=== PATIENT | male | born 1945 | race Caucasian/White ===

== ENCOUNTER 2018-09-02 01:16 | Outpatient (CLI) | payer MEDICARE, MEDICAID, SELFPAY ==
--- NOTE | 2018-09-02 10:36 | DI.MRI_ITS ---
SYMPTOMS/DIAGNOSIS: COMPLEX TEAR OF RT MEDIAL MENISCUS, SUBSEQUENT ENCOUNTER, S83.784K RIGHT KNEE MRI: The study was conducted according to the usual protocol. Axial T 2 fat sat, coronal T 2 fat sat, coronal proton density, sagittal T 2 fat sat and sagittal proton density and sagittal proton density thin ACL pulse sequences were performed. There is some increased signal involving the lateral portion of the medial tibial plateau likely on a degenerative basis. The bony signal is essentially unremarkable. The extensor mechanism of the knee is preserved. The lateral meniscus is normal. There is some irregularity of the mid and anterior portion of the medial meniscus.The findings could be on the basis of prior surgery. No prior MRI was available at the time of this interpretation. However the possibility of an acute or subacute medial meniscal tear could not be excluded. The cruciate ligaments are intact. There is a small joint effusion. A small region of diminished signal is noted involving the medial portion of the medial femoral condyle and there is likely a small cartilaginous defect at this level. The findings consistent with a small osteochondral defect. The patella is intact. Lateral patellofemoral joint degenerative changes are identified and there is an osteochondral defect involving the medial portion of the lateral articular surface of the patella. The medial and lateral patellar retinaculum and medial and lateral collateral ligaments of the knee appear intact. SUMMARY: Irregularity and deformity of the medial meniscus may represent the residua of an old injury or subacute injury. Also the possibility of post surgical changes is raised. The lateral meniscus is normal. There is at least one small osteochondral defect involving the medial femoral condyle and there are degenerative changes involving the patella as described above.
== END 2018-09-02 01:36 ==
PROVIDERS: PCP Family Medicine; Visit Provider Orthopaedic Surgery
DX: S83.231D Complex tear of medial meniscus, current injury, right knee, subsequent encounter (principal); M17.11 Unilateral primary osteoarthritis, right knee; M25.461 Effusion, right knee
CPT/HCPCS: 73721

== ENCOUNTER 2018-09-12 02:04 | Outpatient (CLI) | payer MEDICARE, MEDICAID, SELFPAY ==
[2018-09-12 08:27] LABS: HCT 47.9 % (40.0-50.0); HGB 15.7 g/dL (13.5-17.5); Mean Corp. HGB Concentration 32.8 g/dL (32.0-36.0); Mean Corpuscular Hemoglobin 30.1 pg (27.0-33.0); Mean Corpuscular Volume 91.8 fL (80-95); Mean Platelet Volume 10.6 fL (8.0-11.0); Platelet Count 238 x1000/uL (130-400); RBC 5.22 m/cumm (4.50-6.00); RBC Distribution Width 13.6 % (11.8-14.1); White Blood Cell Count 6.49 k/cumm (4.4-10.8)
[2018-09-12 09:14] LABS: ALT 27 U/L (12-78); AST 20 U/L (15-37); Albumin 3.9 g/dL (3.4-5.0); Alkaline Phosphatase 95 U/L (46-116); Anion Gap 9.7 mmol/L (3-11); BUN 17 mg/dL (7-18); Bilirubin, Total 0.6 mg/dL (0.2-1.0); CO2 28.3 mmol/L (21.0-32.0); CREATININE 1.12 mg/dL (0.70-1.30); Chloride 102 mmol/L (98-107); Cholesterol 150 mg/dL (50-200); Glucose 97 mg/dL (70-100); HDL Cholesterol 43 mg/dL (40-60); LDL CHOLESTEROL 97 mg/dL (<100); Potassium 4.1 mmol/L (3.5-5.1); Sodium 140 mmol/L (136-145); Total Protein 6.4 g/dL (6.4-8.2); Triglyceride 61 mg/dL (30-150)
[2018-09-12 09:38] LABS: Calcium 9.1 mg/dL (8.5-10.1)
== END 2018-09-12 02:24 ==
PROVIDERS: PCP Family Medicine; Visit Provider Family Medicine
DX: I10 Essential (primary) hypertension (principal)
CPT/HCPCS: 36415; 80053; 80061; 83721; 85027

== ENCOUNTER 2019-07-16 07:46 | Outpatient (CLI) | payer MEDICARE, MEDICAID, SELFPAY ==
[2019-07-16 09:12] LABS: Calculated LDL 49 mg/dL; Cholesterol 108 mg/dL (50-200); HDL Cholesterol 42 mg/dL (40-60); LDL CHOLESTEROL 57 mg/dL (<100); Triglyceride 85 mg/dL (30-150)
== END 2019-07-16 08:06 ==
PROVIDERS: PCP Family Medicine; Visit Provider Internal Medicine Cardiovascular Disease
DX: E78.6 Lipoprotein deficiency (principal)
CPT/HCPCS: 36415; 80061; 83721

== ENCOUNTER 2019-09-01 02:58 | Outpatient (CLI) | payer MEDICARE, MEDICAID, SELFPAY ==
[2019-09-01 09:40] LABS: HCT 45.1 % (40.0-50.0); HGB 14.6 g/dL (13.5-17.5); Mean Corp. HGB Concentration 32.4 g/dL (32.0-36.0); Mean Corpuscular Hemoglobin 29.9 pg (27.0-33.0); Mean Corpuscular Volume 92.4 fL (80-95); Mean Platelet Volume 10.2 fL (8.0-11.0); Platelet Count 252 x1000/uL (130-400); RBC 4.88 m/cumm (4.50-6.00); RBC Distribution Width 13.3 % (11.8-14.1); White Blood Cell Count 7.37 k/cumm (4.4-10.8)
[2019-09-01 11:13] LABS: ALT 20 U/L (16-63); AST 13 U/L (15-37); Albumin 3.6 g/dL (3.4-5.0); Alkaline Phosphatase 114 U/L (46-116); Anion Gap 6.6 mmol/L (3-11); BUN 15 mg/dL (7-18); Bilirubin, Total 0.5 mg/dL (0.2-1.0); CO2 28.4 mmol/L (21.0-32.0); CREATININE 1.07 mg/dL (0.70-1.30); Calcium 8.8 mg/dL (8.5-10.1); Chloride 107 mmol/L (98-107); Glucose 99 mg/dL (74-106); Sodium 142 mmol/L (136-145); Total Protein 6.4 g/dL (6.4-8.2)
== END 2019-09-01 03:18 ==
PROVIDERS: PCP Family Medicine; Visit Provider Family Medicine
DX: I10 Essential (primary) hypertension (principal); J44.9 Chronic obstructive pulmonary disease, unspecified
CPT/HCPCS: 36415; 80053; 85027

== ENCOUNTER 2019-10-08 02:17 | Outpatient (CLI) | payer MEDICARE, MEDICAID, SELFPAY ==
[2019-10-08 09:07] LABS: HCT 45.5 % (40.0-50.0); HGB 14.5 g/dL (13.5-17.5); Mean Corp. HGB Concentration 31.9 g/dL (32.0-36.0); Mean Corpuscular Hemoglobin 29.4 pg (27.0-33.0); Mean Corpuscular Volume 92.1 fL (80-95); Mean Platelet Volume 10.3 fL (8.0-11.0); Platelet Count 268 x1000/uL (130-400); RBC 4.94 m/cumm (4.50-6.00); RBC Distribution Width 13.3 % (11.8-14.1); White Blood Cell Count 6.55 k/cumm (4.4-10.8)
[2019-10-08 10:05] LABS: ALT 24 U/L (16-63); AST 15 U/L (15-37); Albumin 3.6 g/dL (3.4-5.0); Alkaline Phosphatase 110 U/L (46-116); Anion Gap 7.4 mmol/L (3-11); BUN 12 mg/dL (7-18); Bilirubin, Total 0.5 mg/dL (0.2-1.0); CO2 31.6 mmol/L (21.0-32.0); CREATININE 1.13 mg/dL (0.70-1.30); Calcium 8.6 mg/dL (8.5-10.1); Chloride 103 mmol/L (98-107); Glucose 114 mg/dL (74-106); Sodium 142 mmol/L (136-145); Total Protein 6.2 g/dL (6.4-8.2)
== END 2019-10-08 02:37 ==
PROVIDERS: PCP Family Medicine; Visit Provider Family Medicine
DX: J44.9 Chronic obstructive pulmonary disease, unspecified (principal); I10 Essential (primary) hypertension
CPT/HCPCS: 36415; 80053; 85027

== ENCOUNTER 2019-10-27 02:09 | Outpatient (CLI) | payer MEDICARE, MEDICAID, SELFPAY ==
[2019-10-27 08:50] LABS: ALT 20 U/L (16-63); AST 16 U/L (15-37); Albumin 3.5 g/dL (3.4-5.0); Alkaline Phosphatase 108 U/L (46-116); Anion Gap 6.7 mmol/L (3-11); BUN 21 mg/dL (7-18); Bilirubin, Total 0.5 mg/dL (0.2-1.0); CO2 31.3 mmol/L (21.0-32.0); CREATININE 1.24 mg/dL (0.70-1.30); Chloride 105 mmol/L (98-107); Glucose 102 mg/dL (74-106); Sodium 143 mmol/L (136-145); Total Protein 6.7 g/dL (6.4-8.2)
[2019-10-27 08:51] LABS: Creatine Kinase 56 U/L (39-308); Magnesium 2.1 mg/dL (1.8-2.4)
== END 2019-10-27 02:29 ==
PROVIDERS: PCP Family Medicine; Visit Provider Internal Medicine Cardiovascular Disease
DX: E78.6 Lipoprotein deficiency (principal); R06.09 Other forms of dyspnea; I10 Essential (primary) hypertension; I48.0 Paroxysmal atrial fibrillation
CPT/HCPCS: 36415; 80053; 82550; 83735

== ENCOUNTER 2019-11-06 00:57 | Outpatient (CLI) | payer MEDICARE, MEDICAID, SELFPAY ==
[2019-11-06 09:50] LABS: ALT 22 U/L (16-63); AST 12 U/L (15-37); Albumin 3.6 g/dL (3.4-5.0); Alkaline Phosphatase 127 U/L (46-116); BUN 14 mg/dL (7-18); Bilirubin, Total 0.5 mg/dL (0.2-1.0); CREATININE 1.17 mg/dL (0.70-1.30); Calcium 8.5 mg/dL (8.5-10.1); Chloride 102 mmol/L (98-107); Glucose 114 mg/dL (74-106); Potassium 4.2 mmol/L (3.5-5.1); Sodium 141 mmol/L (136-145); Total Protein 6.5 g/dL (6.4-8.2)
== END 2019-11-06 01:17 ==
PROVIDERS: PCP Family Medicine; Visit Provider Family Medicine
DX: J44.9 Chronic obstructive pulmonary disease, unspecified (principal); I48.0 Paroxysmal atrial fibrillation; I10 Essential (primary) hypertension; M54.5 Low back pain; I48.92 Unspecified atrial flutter; N40.1 Benign prostatic hyperplasia with lower urinary tract symptoms; E78.5 Hyperlipidemia, unspecified
CPT/HCPCS: 36415; 80053

== ENCOUNTER 2019-11-20 00:13 | Outpatient (CLI) | payer MEDICARE, MEDICAID, SELFPAY ==
[2019-11-20 09:51] LABS: ALT 27 U/L (16-63); AST 16 U/L (15-37); Albumin 3.6 g/dL (3.4-5.0); Alkaline Phosphatase 116 U/L (46-116); Anion Gap 8.2 mmol/L (3-11); BUN 20 mg/dL (7-18); Bilirubin, Total 0.3 mg/dL (0.2-1.0); CO2 28.8 mmol/L (21.0-32.0); CREATININE 1.28 mg/dL (0.70-1.30); Calcium 8.4 mg/dL (8.5-10.1); Chloride 106 mmol/L (98-107); Estimated GFR 55.24 (mL/min/1.73m2); Glucose 120 mg/dL (74-106); Potassium 4.3 mmol/L (3.5-5.1); Sodium 143 mmol/L (136-145); Total Protein 6.3 g/dL (6.4-8.2)
== END 2019-11-20 00:33 ==
PROVIDERS: PCP Family Medicine; Visit Provider Internal Medicine Cardiovascular Disease
DX: I48.0 Paroxysmal atrial fibrillation (principal); I10 Essential (primary) hypertension; J44.9 Chronic obstructive pulmonary disease, unspecified; I48.92 Unspecified atrial flutter; N40.1 Benign prostatic hyperplasia with lower urinary tract symptoms; E78.5 Hyperlipidemia, unspecified; M25.561 Pain in right knee; M54.5 Low back pain
CPT/HCPCS: 36415; 80053

== ENCOUNTER → 2020-04-29 09:52 | Outpatient (BNVA) | payer MEDICARE, MEDICAID, SELFPAY | PROVIDERS: PCP Family Medicine; Referring Provider Family Medicine; Visit Provider Surgery | DX: R19.5 Other fecal abnormalities (principal); Z12.11 Encounter for screening for malignant neoplasm of colon; I48.20 Chronic atrial fibrillation, unspecified; I50.32 Chronic diastolic (congestive) heart failure; M19.90 Unspecified osteoarthritis, unspecified site; G47.33 Obstructive sleep apnea (adult) (pediatric); J44.9 Chronic obstructive pulmonary disease, unspecified; K62.5 Hemorrhage of anus and rectum; F10.11 Alcohol abuse, in remission; G62.9 Polyneuropathy, unspecified | CPT/HCPCS: 99203; 99214 ==

== ENCOUNTER 2020-05-12 09:00 | Day surgery (SDC) | payer MEDICARE, MEDICAID, SELFPAY ==
[2020-05-12 09:16] VITALS: BP 133/83; PULSE 84; RESP 18; TEMP 36.2; O2SAT 99
[2020-05-12] MEDS: Lactated Ringers 1,000 ML 80 ML IV (10:01)
--- NOTE | 2020-05-12 11:01 | BOWEL_PTH ---
PATIENT: Liang Kumar LOC: [facility] U#:[id number] AGE/SX: 74/M ROOM: RE05/12/[address]: Edie Win : 1945 BED: DIS: 05/12/2020 SPEC #: [id number] RECD: 05/12/20 12:49 STATUS: ROBERT REQ #: [id number] FERMIN: 05/12/20 11:[address]: Edie Win DEPT: Surgical Specimen RECD BY: Eda Parkinson ENTERED: 05/12/20 12:50 SP TYPE: Bowel OTHR DR: Crescencio Bhardwaj Tissues: 1 - BIOPSY BOWEL Procedures: GROSS AND MICRO LEVEL 4 IMMUNOPEROXIDASE STAIN Comments:
--- NOTE | 2020-05-12 11:37 | COLE_ITS ---
Date of service: 05/12/20 Time of Service: 11:00 Colonoscopy Report Date of procedure: 05/12/20 Pre-op diagnosis general: FIT+ Post-op diagnosis procedure note: other (Severe diverticular disease, adenomatous polyp at 20 cm 2 cm. And a 5 mm adenomatous polyp adjacent to this. This area is tattooed as well.) Procedure: CE and polypectomy w/ hot snare tatoo jena clip Surgeon: Edie Win Anesthesia proc note operative: MAC Estimated blood loss (mL): 3 Pathology: other Complications: None Indications: +FIT Prep: Miralax/Dulcolax Retraction Time: 20 Procedure Description: After informed consent was obtained the patient was taken to the procedure room and placed in a left decubitous position. Monitors were applied and a time out was done. The patients name, date of , procedure, allergies to medications and metal in their body was reviewed. The patient was then sedated. Once sedated and comfortable a rectal exam was done. External exam: External hemorrhoids and tags. Internal exam revealed a normal sphincter tone and no palpable masses. The prostate-enlarged The scope was then introduced and retrofelexed. Grade 2 internal hemorrhoids were identified. The scope was then advanced to the cecum w/o difficulty. The TI and appendiceal orifice were identified. The prep was good. The scope was then slowly retracted over 20 minutes back into the rectum. Polyps were removed x2 @ 20cm was a 2 cm polyp that was removed. With a hot snare, into pieces because of its size. This area was tattooed. A clip was placed on it at the conclusion of the procedure. There is no bleeding. There is a smaller polyp adenomatous polyp adjacent to this this is removed one by a hot adenomatous forcep. All specimens retrieved and no bleeding is noted. He also has severe diverticular disease. Most of this is confined to the sigmoid colon, but it does extend all the way over to the left colon. There is no signs of active bleeding or infections. The scope was removed and the patient was woken up and taken back to Same day surgery in stable condition. The patient tolerated the procedure well and there were no immediate complic ations. Follow up: The patient should follow up in 6-12m,path pd. Unless they develop changes in bowel habits or other new gastrointestinal complaints.
--- NOTE | 2020-05-12 11:40 | PDOC.DSDIS_ITS ---
Discharge Plan Disposition Patient Disposition: HOME Condition: Good Discharge Details Reason For Visit: colon scope and polyp removal Attending Provider: Edie Win Primary Care Provider: Crescencio Bhardwaj Home Meds and New Rx's Prescriptions: Continued bisacodyl [Dulcolax (bisacodyl)] 5 mg tablet,delayed release (DR/EC) 5 mg PO ONCE Qty: 4 RF: 0 Anoro Ellipta 62.5-25 mcg/actuation blister with device 1 inh IH DAILY RF: 0 metoprolol succinate 25 mg capsule,sprinkle,ER 24hr 25 mg PO DAILY RF: 0 potassium chloride 10 mEq capsule, extended release 10 meq PO DAILY RF: 0 spironolactone 25 mg tablet 25 mg PO DAILY RF: 0 tamsulosin 0.4 mg capsule 0.8 mg PO DAILY RF: 0 torsemide 20 mg tablet 40 mg PO DAILY RF: 0 albuterol sulfate [Ventolin HFA] 90 mcg/actuation HFA aerosol inhaler 2 puff IH QID RF: 0 Discontinued Eliquis 5 mg tablet 5 mg PO BID RF: 0 meloxicam 15 mg tablet 15 mg PO DAILY RF: 0 polyethylene glycol 3350 17 gram/dose powder 17 g PO ONCE Qty: 238 RF: 0 Discharge Instructions Additional Instructions: Findings: -x2 polyp at 20cm. One was large. We should repeat the C. Scope in 6-12moths. You will receive a letter in 2-3wks with the results of the pathology and when they want to repeat the colon scope. Do not resume Elliquis until Saturday No ASA/NSAID's/Meloxicam for 2 weeks. We will have some slight bleeding with the first bowel movement. If there is any bleeding that persists for more than 2 bowel movements, or if passing clots larger than a fist, come into the emergency room. -Also noted is severe diverticular disease. Follow a high fiber diet, or consider adding a fiber supplement to your daily medication routine. Make sure you are moving your bowels on a regular basis and not straining to go to the bathroom. Please call if you develop: fevers >101.5 Nausea or Vomiting Abdominal pain that is not transient DAY SURGERY UNIT POST COLONOSCOPY INSTRUCTIONS 1. Because there will be medication in your system for the next 24 hours, you may feel a little sleepy. Your coordination will be affected. Therefore: a. Do not drive or operate dangerous equipment for 24 hours. b. Do not drink alcohol beverages for 24 hours (not even beer). c. Plan to go home and rest for the day. 2. Generally there are no restrictions on your activity after a day or so has gone by, but you may feel a bit fatigued for a few days. 3 After you arrive home you may have a light meal and return to a normal diet as you can tolerate it without feeling sick to your stomach. 4. After surgery, you may feel pain or discomfort. This should be only transient, but if it persists please contact your doctor. 5. If there are any questions regarding the findings of your procedure, please feel free to contact your doctor. 6. If you are unable to contact your doctor with a problem, contact the hospital at [phone]. 7. Continue all your regular medications unless directed otherwise. I understand the above instructions and have no questions. Signature of Patient or Responsible Adult Escort Date/Time Name of Responsible Adult Escort Signature of Nurse Date/Time DIVERTICULAR DISEASE OVERVIEW ? A diverticulum is a pouch-like structure that can form through points of weakness in the muscular wall of the colon (ie, at points where blood vessels pass through the wall). Diverticulosis affects men and women equally. The risk of diverticular disease increases with age. It occurs throughout the world but is seen more commonly in developed countries. WHAT IS DIVERTICULAR DISEASE? Diverticulosis ? Diverticulosis merely describes the presence of diverticula. Diverticulosis is often found during a test done for other reasons, such as flexible sigmoidoscopy, colonoscopy, or barium enema. Most people with diverticulosis have no symptoms and will remain symptom free for the rest of their lives. A person with diverticulosis may have diverticulitis, or diverticular bleeding. Diverticulitis ? Inflammation of a diverticulum (diverticulitis) occurs when there is thinning and breakdown of the diverticular wall. This may be caused by increased pressure within the colon or by hardened particles of stool, which can become lodged within the diverticulum. The symptoms of diverticulitis depend upon the degree of inflammation present. The most common symptom is pain in the left lower abdomen. Other symptoms can include nausea and vomiting, constipation, diarrhea, and urinary symptoms such as pain or burning when urinating or the frequent need to urinate. Diverticulitis is divided into simple and complicated forms. ?Simple diverticulitis, which accounts for 75 percent of cases, is not associated with complications and typically responds to medical treatment without surgery. ?Complicated diverticulitis occurs in 25 percent of cases and usually requires surgery. Complications associated with diverticulitis can include the following: ?Abscess ? a localized collection of pus ?Fistula ? an abnormal tract between two areas that are not normally connected (eg, bowel and bladder) ?Obstruction ? a blockage of the colon ?Peritonitis ? infection involving the space around the abdominal organ ?Sepsis ? overwhelming body-wide infection that can lead to failure of multiple organs Diverticular bleeding ? Diverticular bleeding occurs when a small artery located within a diverticulum is eroded and bleeds into the colon. Diverticular bleeding usually causes painless bleeding from the rectum. In approximately 50 percent of cases, the person will see maroon or bright red blood with bowel movements. Is bleeding with a bowel movement normal? ? It is not normal to see blood in a bowel movement; this can be a sign of several conditions, most of which are not serious (eg, hemorrhoids) but some of which are serious and require immediate treatment. Anyone who sees blood after a bowel movement should consult with their healthcare provider to determine if further testing or evaluation is needed. DIVERTICULOSIS AND DIVERTICULITIS DIAGNOSIS ? Diverticulosis is often found during tests performed for other reasons. ?Barium enema ? This is an x-ray study that uses barium in an enema to view the outline of the lower intestinal tract. This is an older test and has been largely replaced by computed tomography (CT) scan. ?Flexible sigmoidoscopy ? This is an examination of the inside of the sigmoid colon with a thin, flexible tube that contains a camera. ?Colonoscopy ? This is an examination of the inside of the entire colon. ?CT scan ? A CT scan is often used to diagnose diverticulitis and its complications. If diverticulitis (not just diverticulosis) is suspected, the above three tests should not be used because of the risk of perforation. TREATMENT Diverticulosis ? People with diverticulosis who do not have symptoms do not require treatment. However, most clinicians recommend increasing fiber in the diet, which can help to bulk the stools and possibly prevent the development of new diverticula, diverticulitis, or diverticular bleeding. Fiber is not proven to prevent these conditions in all patients but may help to control recurrent episodes in some. Increase fiber ? Fruits and vegetables are a good source of fiber. Fiber content of packaged foods can be calculated by reading the nutrition label. Seeds and nuts ? Patients with diverticular disease have historically been advised to avoid whole pieces of fiber (such as seeds, corn, and nuts) because of concern that these foods could cause an episode of diverticulitis. However, this belief is completely unproven. We do not suggest that patients with diverticulosis avoid seeds, corn, or nuts. Diverticulitis ? Treatment of diverticulitis depends upon how severe your s ymptoms are. Home treatment ? If you have mild symptoms of diverticulitis (mild abdominal pain, usually left lower abdomen), you can be treated at home with a clear liquid diet and oral antibiotics. However, if you develop one or more of the following signs or symptoms, you should seek immediate medical attention: ?Temperature >100.1?F (38?C) ?Worsening or severe abdominal pain ?An inability to tolerate fluids Hospital treatment ? If you have moderate to severe symptoms, you may be hospitalized for treatment. During this time, you are not allowed to eat or drink; antibiotics and fluids are given into a vein. If you develop an abscess of the colon, you may require drainage of the abscess (usually performed by placing a drainage tube across the abdominal wall) or by surgically opening the affected area. Surgery ? If you develop a generalized infection in the abdomen (peritonitis), you will usually require an emergency operation. A two-part operation may be necessary in some cases. ?The first operation involves removal of the diseased colon and creation of a colostomy. A colostomy is an opening between the colon and the skin, where a bag is attached to collect waste from the intestine. The lower end of the colon is temporarily sewed closed to allow it to heal. ?Approximately three to six months later, a second operation is performed to reconnect the two parts of the colon and close the opening in the skin. You are then able to empty your bowels through the rectum. Sometimes patients require up to a year to recover from the first operation, depending on how sick they were. In non-emergency situations, the diseased area of the colon can be removed and the two ends of the colon can be reconnected in one operation, without the need for a colostomy. Surgery versus medical therapy ? An operation to remove the diseased area of the colon may be necessary if you do not improve with medical therapy. After an episode of uncomplicated diverticulitis, elective surgery is generally not required as the risk of another attack or requiring emergency surgery is low. However, patients with persistent symptoms attributable to diverticulitis, a history of complicated diverticulitis, or a compromised immune system should be evaluated for possible surgery to prevent another attack. In such patients, another attack has been associated with a higher risk of complications or . Of course, the decision will also depend in part upon your other medical conditions and ability to undergo surgery. In many cases, an elective operation can be performed laparoscopically, using small incisions, rather than the typical vertical (up and down) abdominal incision. Laparoscopic surgery usually allows you to recover more quickly and shortens the hospital stay. After diverticulitis resolves ? After an episode of diverticulitis resolves, if you have not had a recent colonoscopy, the entire length of the colon should be evaluated to determine the extent of disease and to rule out the presence of abnormal lesions such as polyps or cancer. Recommended tests include colonoscopy, barium enema and sigmoidoscopy, or CT colonography. Diverticular bleeding ? Most cases of diverticular bleeding resolve on their own. However, some people will need further testing or treatment to stop bleeding, which may include a colonoscopy, angiography (a treatment that blocks off the bleeding artery), bleeding scan, or surgery. DIVERTICULAR DISEASE PROGNOSIS Diverticulosis ? Over time, diverticulosis may cause no problems or it may cause episodes of bleeding and/or diverticulitis. Approximately 15 to 25 percent of people with diverticulosis will develop diverticulitis, while 5 to 15 percent will develop diverticular bleeding. Diverticulitis ? Approximately 85 percent of people with uncomplicated d iverticulitis will respond to medical treatment, while approximately 15 percent of patients will need an operation. After successful treatment for a first attack of diverticulitis, one-third of patients will remain asymptomatic, one- third will have episodic cramps without diverticulitis, and one-third will go on to have a second attack of diverticulitis. The prognosis tends to remain similar following a second attack of diverticulitis. Only 10 percent of people remain symptom-free after a second attack. Subsequent attacks tend to be of similar severity, not increasing in severity as previously believed. High Fiber Diet What is Dietary Fiber? All fiber comes from plants, bushes, jeremias or trees. Of course, the ones that we eat provide us with fruits, vegetables and grains. There are many different types of fiber but the three that are most important to the health of the body are: Insoluble Fiber This fiber does not dissolve in water, nor is it fermented by the bacteria residing in the colon. Rather, it retains water and in so doing, helps to promote a larger, bulkier and more regular bowel activity. This, in turn, may be important in preventing disorder such as diverticulosis and hemorrhoids, and in sweeping out certain toxins and cancer causing carcinogens. Sources of insoluble fiber are: ? whole grain wheat and other whole grains ? corn bran, including popcorn, unflavored and unsweetened ? nuts and seeds ? potatoes and the skins from most fruits from trees such as apples, bananas and avocados ? many green vegetables such as green beans, zucchini, celery and cauliflower ? some fruit plants such as tomatoes and kiwi Soluble Fiber These fibers are fermented or used by the colon bacteria as a food source or nourishment. When these good bacteria grow and thrive, many health benefits occur in both the colon and the body. Soluble fiber is present in some degree in most edible plant foods, but the ones with the most soluble fiber include: ? legumes such as peas and most beans, including soybeans ? oats, rye and barley ? many fruits such as berries, plums, apples bananas and pears ? certain vegetables such as broccoli and carrots ? most root vegetables ? psyllium husk supplement products Prebiotic Soluble Fiber These are relatively newly discovered soluble plant fibers. The technical name for this fiber is inulin or fructan. When these soluble fibers are fermented by the good colon bacteria, some further significant health benefits have been shown to occur by research in many medical centers. These soluble prebiotic fibers occur in significant amounts in: ? asparagus ? yams ? onions ? garlic ? bananas ? leeks ? agave ? chicory and other root vegetables such as [place] artichokes ? wheat, rye and barley (smaller amounts) Benefits of a High Fiber Diet The health benefits of a high fiber diet, consumed on a regular basis and reaching recommended amounts (below), are now fairly well-defined. There are some additional benefits in the early research stage with the prebiotic soluble fibers. What is now known regarding a high fiber diet include: Bowel Regularity A high fiber diet promotes regularity with a softer, bulkier and regular stool pattern. This decreases the chance of hemorrhoids, diverticulosis and perhaps colon cancer. Cholesterol and Reduced Triglycerides The soluble fibers are the ones that will reduce cholesterol levels when used on a regular basis. Psyllium husk and prebiotic soluble fiber will also reduce cholesterol. They may also reduce the incidence of coronary heart disease. Oats, flax seeds and legumes or beans are the recommended fibers. Colon Polyps and Cancer It is still not certain if a high fiber diet helps prevent colon cancer. Considerable research suggests that this may occur. Certainly it makes sense to increase regularity and so speed the movement of cancer causing carcinogens through the bowel. In addition, reducing a heavy meat diet reduces the bile flow from the liver in a favorable way. This, too, reduces the amount of carcinogens that reach and are manufactured in the colon. Finally, a high fiber diet, including prebiotic soluble fiber, increases the integrity and health of the wall of the colon. The risk of cancer may be reduced. Colon Wall Integrity A high fiber diet changes the bacterial makeup of the colon toward a more favorable balance. For instance, it is known that those people with obesity, diabetes type 2 and inflammatory bowel disease have a predominance of bad bacteria in the colon. This, in turn, may render the bowel wall weak and allow bacteria and, indeed, even toxins to seep through. A high fiber diet with a modest reduction in animal and meat products may return the bacterial makeup to a more positive balance. This, in particular, has been seen when the soluble fib er prebiotics are added to the diet. Blood Sugar Soluble fiber such as in legumes (beans), oats and in prebiotic fibers slows the absorption of blood sugar and so helps regulate the sugar in the blood. Insoluble fiber on a regular basis is associated with reduced risk of type 2 diabetes. Weight Loss High fiber diets are more filling and give a sense of fullness sooner than an animal and meat based diet does. In addition, the soluble prebiotic fibers have been shown to turn off the hunger hormones produced in the wall of the gut and to increase the hormones that give a sense of fullness. Those hormones are made in the wall of the gut. New medical research has shown that the bacterial makeup in the colon in overweight people is abnormal to the extent that they manufacture and absorb almost twice the number of calories through the colon wall as do normals. Prebiotic fibers (below) will help change this hormonal balancein a favorable way. Bacteria and the Function of the Colon The colon finishes the digestive process. Hopefully, the waste products move through in a nice regular manner. Insoluble fibers help this process by retaining water and so producing a bulkier, softer stool, which is easy to pass. The additional role of the colon is to provide a home for an enormous number of micro-organisms, mostly bacteria. Recent research has shown that there are over 1,000 species of bacteria with a total bacterial count ten times the number of cells in the body. These bacteria play a major role in keeping the colon wall itself healthy. In addition, these good bacteria produce a very strong immune system for the body. They significantly increase calcium absorption and bone density. They provide other documented benefits. It is the soluble fibers in the diet that are so effective in stimulating the growth of good colon bacteria. How Much is Enough? The amount of fiber in food is measured in grams. National nutritional authorities recommend the following amounts of dietary fiber daily. Under Age 50 Over Age 50 Men 38 grams 30 grams Women 25 grams 21 grams For a week or so, it is best to tally the amount of fiber you are consuming. Boxed and packaged foods will have the amount of fiber per serving on the nutrition label. Which Fibers and Which Foods are Best? As noted, healthy fiber is only found in plants. The three major categories are whole grains, fruits and vegetables. Whole Grains Wheat, oats, barley, wild or brown rice, amaranth, buckwheat, bulgur, corn, millet, quinoa, rye, sorghum, teff and triticals. By far, wheat, oats and wild or brown rice are most common. Always buy whole grain products. White bread, baked goods and rolls almost always are made from wheat flour. Wheat flour is white because most of the fiber, vitamins and other nutrients have been removed. Try not buy enriched grains. What this means is that simple white flour has had vitamins added to it by the homicide investigator. The word, enriched, implies a good and healthy product. On the contrary, enriched means that most of the fiber has been removed and a few vitamins added. Fruits Fruits come from trees such as apple and pear or from bushes or jeremias. You should eat a wide variety of fruits, preferably with every meal. In many cases, the skin of a fruit such as apple will contain much of the insoluble fiber while the pulp contains most of the soluble fiber. To the extent possible, buy organic fruits as these will have little or no pesticides. Always wash fruit. Vegetables Eat a wide variety of vegetables. They should be a mainstay of lunch and dinners. Frozen vegetables retain as much nutrition and fiber as fresh vegetables. As with fruit, try to buy organic to reduce any residual pesticide ingestion. Wash fresh vegetables thoroughly. Cruciferous vegetables such as broccoli, [place] sprouts and cauliflower contain certain chemicals such as sulforaphane. This substance has very strong anti-cancer properties and should be eaten frequently. Legumes, Beans, Peas and Soybeans These vegetables have plenty of soluble fiber and should be part of a varied vegetable intake. Beans, in particular, contain a certain type of fiber that may lead to harmless gas or bloating. Nuts and Seeds These are rich sources of fiber and are a good substitute for sweets such as candies and baked sweet goods. While nuts and seeds are rich in fiber, they also contain vegetable fat and so can and do add calories. Read the Labels As noted, fresh and frozen foods are usually better. They have good nutrition and few, if any, chemicals added to them. When buying packaged foods and, in particular grains, look for three things: ? The first word on the label should be whole, such as whole wheat or whole grain. ? Check out the calories and the amount of fiber in a serving. ? How many and what other additives or chemicals are added. Fewer is always better. Do you know what each additive does? Some are added not for the benefit of the fashion buyer but rather for manufacturers. These could and do include sugar, artificial flavor, chemicals to prevent oxidation and spoilage, emulsifiers to blend the product. You have to be a casino attendant. Fiber Facts, Nuggets and Pearls ? For breakfast you can easily get the day started well by using a high fiber, whole grain cereal. Check the labels. Add fruit such as blueberries and bananas. If you are an egg eater, use whole wheat or grain toast. Adding wheat germ gives you a good fiber kick. ? Always use whole grain or wheat with rolls and sandwiches. Does your fast food store not have them? Perhaps you look elsewhere. Eating an occasional black waters or veggie burger provides variety. ? Snacks should consist of fruit and/or nuts. While nuts are loaded with fiber, they are an energy rich food, meaning they have a lot of calories in a small packet. ? Fruit juices should contain pulp. Clear juices such as clear orange, pear or apple juice contain little fiber and have a lot of fructose. Prune juice is usually high in fiber. ? Homemade soups ? adding fresh or frozen vegetables to a chicken or vegetable stock is a good way to start homemade soup. ? Salads ? adding cooked and then chilled vegetables provide great flavoring to almost any salad. Remember, a delcid salad has lots of cooked corn in it. Small slices of apples or oranges and nuts such as chopped walnuts or sliced almonds always adds taste, variety and fiber to almost any salad. ? Fruit ? Try to eat fruit of some type with almost every meal. ? Rethink how you place the various foods on your dinner plate. Reducing the portions of the meat or animal food portion to the side with equal or more portions of vegetables, legumes and fruits portion always allows for more fiber. There was never anything magic about making the meat or animal food portion the main part of the dinner plate. Eating from smaller plates can, over time, trick your mind and residential habit of using a dinner plate. Again, there is nothing magic in an 11, 12, or 13 inch dinner plate. Fiber Supplements There are a variety of fiber supplements available on the food or pharmacy shelves. Psyllium This soluble plant fiber has been used in [place] for over 2,000 years. It is a soluble fiber with mucilage in it. This acts to retain a lot of water and also is fermented by colon bacteria. When 7 grams a day are used, it does lower cholesterol. Metamucil in various forms is psyllium. Methyl Cellulose All the cellulose products come from finely ground wood chips which are then treated in a variety of ways such as boiling in acids. Methyl cellulose is an insoluble fiber which does dissolve in water. It is also an emulsifier, meaning it blends oils and water. Citrucel is methyl cellulose (MC). MC may not be appropriate for Crohn?s disease or ulcerative colitis as several medical studies have shown that certain emulsifiers dissolve the mucous lining of the colon in animals prone to Crohn?s disease. This then allows bacteria to invade the u nderlying tissue. Inulin Inulin is a soluble prebiotic fiber found in many foods and which are fermented mostly in the left side of the colon. It is available in a supplement as generic inulin and in Fiber Choice. Oligofructose FOS These are also prebiotic fibers. They are fermented very quickly in the right side of the colon. Prebiotin This product is a combination of oligofructose, which feeds the bacteria in the right side of the colon and inulin, which does the same in the left side of the colon. There seems to be a benefit for this particular formula based on medical research. Prebiotic Soluble Fiber These may be the healthiest of all the soluble fibers. They grow in many plants and have had a great deal of research done on them in the last 10-15 years. These fibers are found in asparagus, yams and other root vegetables such as chicory, garlic, onion, leeks and in smaller amounts in wheat. This research has shown the following: ? Increase in good and decrease in bad colon bacteria ? Increase calcium absorption and enhanced bone mass ? Enhanced immune system ? Appetite and weight control by changing the hormone appetite signals to the brain ? May decrease colon cancer incidence ? Reduce or correct a leaky colon Eating a wide variety of plant food up to the recommended amount will likely give you enough prebiotic fiber. Supplements such as Prebiotin can be added to the diet. Short Chain Fatty Acids (SCFA) Some rather remarkable research findings have shown that one of the benefits of ingesting a lot of soluble fiber, in particular the prebiotic ones, results in larger amounts of SCFAs in the colon. These SCFAs are made by the good bacteria in the colon such as Bifidobacter and Lactobacillus. These small molecules have been shown to do the following: ? Enhance the health and integrity of the colon wall ? Provide nourishment for the cells that actually line the colon ? Increases the acidity of the colon which is a very real health benefit ? Stabilize blood sugar for diabetics ? Reduce blood cholesterol and triglyceride ? Significantly enhance immunity ? May be a benefit for Crohn?s disease and ulcerative colitis patients Fiber and Gas Everyone has intestinal gas and that is a good thing. It means that bacteria, hopefully the good ones, are thriving. The normal amount of flatus passed each day depends on sex and what is eaten. The normal number of flatus is 10-20 times a day. When the bacteria that make intestinal gases are growing, it also means that other good bacteria are using the same fibers to grow and produce multiple health benefits, including the production of healthy short-chain fatty acids. These substances are produced quietly in the colon and produce many health-related outcomes. Soluble fiber should always be used in a gradual manner. If too much is consumed at any one time, then excess, but harmless, intestinal gas can occur. People with irritable bowel syndrome are particularly prone to bloating and mild cramping. In this instance, soluble fiber in the diet or supplement should be used in small doses and increased gradually. Finally, prebiotic fibers tend to cause the production of short-chain fatty acids which acidify the colon. This, in turn, reduces or stops the growth of bacteria that make the smelly hydrogen sulfide gases that produce noxious flatus. People who consume many vegetables with prebiotics or take a prebiotic fiber supplement often have non-odoriferous flatus. Fiber and Irritable Bowel Syndrome Irritable bowel syndrome (IBS) is one of the most common disorders of the lower digestive tract. The symptoms of IBS can be quite varied. They can be a mix of several symptoms such as constipation, diarrhea, crampy abdominal discomfort, bloating and gas. An attack of IBS can be triggered by emotional tension and anxiety, poor dietary habits and certain medications. It is now known that infections in the intestine can lead to long-term IBS symptoms. Increased amounts of fiber in the diet can help relieve the symptoms of irritable bowel syndrome by producing soft, bulky stools. This helps to normalize the time it takes for the stool to pass through the colon. Recent medical research with newer techniques has shown some surprising and dramatic findings for IBS patients. Specifically, there is a very significant and abnormal shift of bacteria from those that provide health benefits to those bad bacteria that we really do not want in the gut. The technical name for this bad group of bacteria is called Firmicutes. Along with this abnormal bacterial collection, there is a smoldering low-grade inflammation in the gut wall that may contribute to symptoms. The goal for IBS patients should be to gradually increase the soluble dietary fibers in the diet so as to promote the growth of good bacteria and so suppress the bad ones along with the associated inflammation. IBS patients need to be careful of the amount of soluble fiber they consume. The reason for this is that, while the good colon bacteria thrive on these fibers and produce health benefits, other gas-forming bacteria may generate excessive but harmless gas and subsequent bloating. Thus, soluble plant fibers or a dietary prebiotic supplement should be taken in small initial doses and then gradually increased to tolerance. Fiber and Colon Polyps/Cancer Colon cancer is a major health problem. This disease is most common in Western cultures. It is not seen very often in rural cultures where the diet is mostly plant based. Usually, colon cancer starts out as a colon polyp, a benign mushroom-shaped growth. In time it grows, and in some people it becomes cancerous. Colon cancer is usually always curable if polyps are removed when found or if surgery is performed at an early stage. It is now known that people can inherit the risk of developing colon cancer, but diet is important, too. As noted, there is a very low rate of colon cancer in residents of countries where grains are unprocessed and retain their fiber. It seems that in the [place] world, cancer-containing agents (carcinogens) remain in contact with the colon wall for a longer time and in higher concentrations. So, a large bulky stool may act to dilute these carcinogens by moving them through the bowel more quickly. Less carcinogenic exposure to the colon may mean fewer colon polyps and less cancer. A very current review of the entire world?s literature on the effect of fiber on colon polyps and cancer prevention has shown rather clearly that for every 10 grams of fiber added to the diet, there is a 10% reduction in incidence of colon cancer. So the recommended 30 gram fiber diet would result in a 30% less chance of getting these tumors. There are also substances produced in the colon by the good bacteria that seem t o retard certain pre-cancer factors from developing. They are called short-chain fatty acids (SCFA). See above for description of SCFAs. A high fiber diet increases these substances. So, the combination of dietary fiber and the production of short-chain fatty acids have a clear health benefit. Fiber and Diverticulosis Prolonged, vigorous contraction of the colon over a long period of time may resu lt in diverticulosis. This increased pressure causes small and, eventually, larger ballooning pockets to form. These pockets by themselves cause no problem. However, sometimes they become infected (diverticulitis) or even break open (perforate) causing infection or inflammation within the abdomen (peritonitis). A high fiber diet increases the bulk in the stool and thereby reduces the pressure within the colon. By so doing, the formation of pockets may be reduced or possibly even stopped. In the past, many physicians were fearful that seeds as in tomatoes, nuts or berries were harmful and could get inside these pockets and rattle around, causing damage. We now know that this has never been the case and that these foods contain lots of fiber and are actually beneficial for diverticulosis patients. Certain bulking agents such as psyllium are traditional types of bulk producing supplements. Psyllium is a soluble fiber. Combining it with insoluble fiber as in wheat bran or corn bran (no gluten) can enhance this bulking effect even more. A product containing a prebiotic, psyllium and wheat bran is probably a very good combination for bowel regularity. Prebiotin Regularity/Diverticulosis is one such product. Inflammatory Bowel Disease (IBD) IBD means Crohn?s Disease (CD) or Ulcerative Colitis (UC). CD is an inflammation of the lower small bowel and/or the colon. Bacteria actually invade and cause inflammation in the entire wall of the intestine. UC, on the other hand, is an inflammation just of the lining of the colon. It usually starts in the rectum and left colon and may spread to the entire colon from there. It is now known that in both CD and UC that the bacterial make up is abnormal. This means that there are significantly more of the bad bacteria present than the good ones. These abnormal bacteria are called Firmicutes. Activity:: No lifting over 20 pounds or strenuous activity x24 hours Diet:: Small light meals x24 hours Discharge Orders Discharge Orders: Discharge Order (Routine); Ordered 05/12/20 Ordered By: Edie Win DS: Diagnosis Discharge Diagnosis (1) Adenomatous polyp of sigmoid colon: Status: Acute (2) Diverticular disease of large intestine: Status: Acute (3) Internal and external bleeding hemorrhoids: Status: Acute
[2020-05-12 12:22] VITALS: BP 127/76; PULSE 65; RESP 18; TEMP 36.2; O2SAT 96
== END 2020-05-12 12:35 | disposition home or self-care (01) ==
PROVIDERS: PCP Family Medicine; Visit Provider Surgery
PROC: 0DJD8ZZ Inspection of Lower Intestinal Tract, Via Natural or Artificial Opening Endoscopic (ICD-10-PCS; CPT 45378; principal; 2020-05-12 10:00)
DX: Z12.11 Encounter for screening for malignant neoplasm of colon (principal); D12.5 Benign neoplasm of sigmoid colon; K57.30 Diverticulosis of large intestine without perforation or abscess without bleeding; I48.91 Unspecified atrial fibrillation; Z79.01 Long term (current) use of anticoagulants; G47.33 Obstructive sleep apnea (adult) (pediatric)
CPT/HCPCS: 45385; 45384; 45381; 88305; 88361; J2001

== ENCOUNTER 2020-12-06 03:41 | Outpatient (CLI) | payer MEDICARE, MEDICAID, SELFPAY ==
[2020-12-06 14:12] LABS: Anion Gap 8.5 mmol/L (3-11); BUN 17 mg/dL (7-18); CO2 30.5 mmol/L (21.0-32.0); CREATININE 1.4 mg/dL (0.70-1.30); Calcium 8.8 mg/dL (8.5-10.1); Calculated LDL 53 mg/dL (<100); Chloride 104 mmol/L (98-107); Cholesterol 123 mg/dL (<200); Estimated GFR 49.68 (mL/min/1.73m2); Glucose 97 mg/dL (74-106); HDL Cholesterol 32 mg/dL (40-60); Potassium 4.3 mmol/L (3.5-5.1); Sodium 143 mmol/L (136-145); Triglyceride 193 mg/dL (<150)
[2020-12-06 14:34] LABS: NT-proBNP 632 pg/mL (<300)
== END 2020-12-06 03:42 | disposition home or self-care (01) ==
LOC: LBO 03:41
PROVIDERS: PCP Family Medicine; Visit Provider Internal Medicine Cardiovascular Disease
DX: E78.5 Hyperlipidemia, unspecified (principal); I50.32 Chronic diastolic (congestive) heart failure
CPT/HCPCS: 36415; 80048; 80061; 83880

== ENCOUNTER → 2021-04-20 10:47 | Outpatient (BNVA) | payer MEDICARE, MEDICAID, SELFPAY | PROVIDERS: PCP Family Medicine; Referring Provider Family Medicine; Visit Provider Physical Therapy Assistant | DX: L98.8 Other specified disorders of the skin and subcutaneous tissue (principal) | CPT/HCPCS: 11200 ==

== ENCOUNTER → 2021-05-18 11:28 | Outpatient (BNVA) | payer MEDICARE, MEDICAID, SELFPAY | PROVIDERS: PCP Family Medicine; Referring Provider Family Medicine; Visit Provider Surgery | DX: R69 Illness, unspecified (principal) ==

== ENCOUNTER 2021-05-18 12:33 | Outpatient (CLI) | payer MEDICARE, MEDICAID, SELFPAY ==
--- OUTSIDE RECORDS SUMMARY | 2021-05-18 12:41 | XMS_ITS | Encounter Summary ---
:1945 Author Care Team Providers Name Role Phone Crescencio Bhardwaj MD Primary Care Provider [phone] Camilo Infante MD Acid Strength Inspector [phone] Reason for Visit Medicare annual wellness visit- male Assessment and Plan Assessment Note This is 75-year-old gentleman here for well adult care. 1. Adult health examination Age-appropriate counseling on immunizations updating as patient allows, cancer screening with colonoscopy due th is year for follow-up on positive colonoscopy last year with polyps and pathology not available, PSA updated with stable SHAHID and cardiovascular risk control with patient having known paroxysmal atrial flutter/fibrillation controlled on medic al therapy. He also has CHF which is stable with diuresis. He could do better with h is diet and exercise for weight loss especially over the trunk with a large p annus and conditioning. His AAA screening was negative in 2019. Counseled on appropria te diet, exercise pattern and sleep with safety from falls. He has no significant depression and his does take care of his medications with patient having magdalena le knowledge of his medical regimen. ? PSA, serum or plasma ? venipuncture ? general surgeon referral - Needs follow up this year by colonoscopy report. 2. Chronic kidney disease stage 3 Continue monitoring on modifie d therapy. ? renal function panel, seru m ? CBC w/ auto diff Discussion Note: None recorded.Patient educational handouts: No information available. Plan of Care Reminders Provider Appointments Office 30 Neno Carlos, 07/10/2021 CYTOGENETICIST 10:00AM ? Nurse 20 Nurse Pc ruchi 09/22/2021 8:20AM ? Follow up 20 Asa Bhardwaj, 09/29/2021 12:40PM ? Awv 20 Crescencio collins, 04/17/2022 9:00AM Lab PSA, Serum or Nor th Country Plasma 04/07/2021 Hospital Lab (Internal) ? Venipuncture P_nc Primary 04/07/2021 Care [place] ? Renal Function No rth Country Panel, Serum 04/07/2021 Hospital Lab (Internal) ? CBC W/ Auto North Country Diff 04/07/2021 Hospital Lab (Internal) Referral General Surgeon N [facility] Surgical Referral 04/07/2021 Group Procedures None recorded. ? ? Surgeries None recorded. ? ? Imaging None recorded. ? ? Medications Name Start Date ? ? albuterol sulfate HFA 90 mcg/actuation aerosol inhaler ? INHALE 2 PUFFS BY MOUTH EVERY 4 HOURS NEEDED Anoro Ellipta 62.5 mcg-25 mcg/actuation powder for inh alation ? INHALE 1 PUFF BY MOUTH EVERY DAY Eliquis 5 mg tablet ? TAKE 1 TABLET BY MOUTH TWICE DAILY gabapentin 300 mg capsule ? TAKE 2 CAPSULES BY MOUTH EVERY DAY AT BEDTIME lisinopril 10 mg tablet ? TAKE 1 TABLET BY MOUTH EVERY DAY metoprolol succinate ER 25 mg tablet,extended release 24 hr ? TAKE 1 TABLET BY MOUTH EVERY DAY Miralax 17 gram oral powder packet ? Take 1 packet every day by oral route as needed. potassium chloride ER 10 mEq tablet,extended release ? TAKE 1 TABLET BY MOUTH EVERY DAY DIRECTED Salonpas (lidocaine) 4 % topical patch ? Apply 2 patches every day by topical route as directe d for 30 days. senna 8.6 mg tablet ? Take 2 tablets twice a day by oral route. spironolactone 25 mg tablet ? TAKE 1 TABLET BY MOUTH DAILY tamsulosin 0.4 mg capsule ? TAKE 2 CAPSULES BY MOUTH EVERY DAY torsemide 20 mg tablet ? TAKE 3 TABLETS BY MOUTH EVERY MORNING Tylenol Arthritis Pain 650 mg tablet,extended release ? Take 2 tablets every 8 hours by oral route as directe d for 90 days. Medications Administered None recorded. Vitals Height Weight BMI Blood Pressure 5 ft 2 in 270 lbs 16 oz 49.6 kg/m2 120/80 mm[Hg] Results Lab Results Date Name Specimen Result Interpretation Description Value Range Status Address ? 04/07/2021 CBC W/ Auto BLD ? Wbc 7.6 10*3/uL 5.0-10.0 F inal North Diff 10*3/uL [facility] [place], [place] ab (Internal) : [address] ? ? BLD ? Rbc 4.87 10*6/uL 4.60-6.00 Final N orth 10*6/uL [facility] (Internal) : [address], [place] ? ? BLD ? Hgb 14.6 g/dL 14.0-18.0 Final Nort h g/dL [facility] ab (Internal) : [address] [place] ? ? BLD ? Hct 47.0 % 41.0-51.0 Final [facility] ab (Internal) : [address] ? ? BLD High Mcv 96.5 fL 80.0-96.0 Final [facility] ab (Internal) : [address] ? ? BLD ? Mch 30.0 pg 26.0-32.0 Final [facility] ab (Internal) : [address] ? ? BLD ? Mchc 31.1 g/dL 31.0-35.0 Final Nort h g/dL [facility] ab (Internal) : [address] ? ? BLD ? Rdw 13.1 % 11.5-14.5 Final [facility] ab (Internal) : [address] ? ? BLD ? Plt 261 10*3/uL 130-450 Final Nort h 10*3/uL [facility] ab (Internal) : [address] ? ? BLD ? Anc 5.64 10*3/uL ? Final Nort h [facility] ab (Internal) : [address] ? ? BLD High Nlr 5.48 0.00-3.20 Final [facility] ab (Internal) : [address] ? ? BLD ? Neutro 73.7 % 40.0-75.0 Final [facility] ab (Internal) : [address] ? ? BLD Low Lymph 13.5 % 20.0-50.0 Final [facility] ab (Internal) : [address] ? ? BLD ? Dale 8.8 % 2.0-10.0 Final [facility] ab (Internal) : [address] ? ? BLD ? Eos 2.4 % 1.0-6.0 % Final [facility] ab (Internal) : [address] ? ? BLD ? Baso 0.8 % 0.0-1.0 % Final [facility] (Internal) : [address] ? ? BLD ? Ig 0.8 % 0.0-0.9 % Final [facility] (Internal) : [address] 04/07/2021 Renal S High g/r 107 mg/dL 74-106 Final Nor th Function mg/dL Country Panel, Serum Hosp ital Lab (Internal) : [address] ? ? S ? Bun 17 mg/dL 9-20 Final North mg/dL [facility] (Internal) : [address] ? ? S ? Crea 1.20 mg/dL 0.66-1.25 Final Nor th mg/dL [facility] (Internal) : [address] t ? ? S ? Ca 9.0 mg/dL 8.4-10.2 Final North mg/dL [facility] ab (Internal) : [address] t ? ? S ? Phos 3.4 mg/dL 2.5-4.5 Final North mg/dL [facility] ab (Internal) : [address] t ? ? S ? Na 140 mmol/L 137-145 Final North mmol/L [facility] ab (Internal) : [address] t ? ? S ? K 4.1 mmol/L 3.5-5.1 Final North mmol/L [facility] (Internal) : [address] t ? ? S ? Cl 99 mmol/L 98-107 Final North mmol/L [facility] (Internal) : [address] t ? ? S High Tco2 31.0 mmol/L 22.0-30.0 Final No rth mmol/L [facility] (Internal) : [address] t ? ? S ? Alb 4.0 g/dL 3.5-5.0 Final North g/dL [facility] (Internal) : [address] ? ? S Low GFR (Calc) 59 >89 Final [facility] (Internal) : [address] 04/07/2021 PSA, Serum or S ? PSA Scrn 2.5 NG/mL 0.0-4.0 Final North Plasma NG/mL [facility] [place] [place] ab (Internal) : [address] t 04/07/2021 Venipuncture ? Location Right ? ? P_nc Primary Antecubital Care [place]: [address], [place] ? ? ? Needle 21g ? ? P_nc Prim baljinder Vacutainer Care [place]: [address], [place] ? ? ? Number of 1 ? ? P_nc P rimary Attempts [facility] [place]: [address], [place] ? ? ? Successful Yes ? ? P_nc Primary [facility] [place]: [address], [place] ? ? ? Dressing Pressure ? ? P_nc Primary Band-aid Care Applied [place]: [address], [place] ? ? ? Initials hj ? ? P_nc Pr imary Care [place]: [address], [place] Allergies Code Code System Name Reaction Severity Onset NKDA ? ? ? Notes: No seafood/contrast aller gy. Problems Name Status Onset Date Source ? Benign Hypertension Active 04/07/2018 ? Chronic Obstructive Lung Disease Active 04/07/2018 ? Benign Prostatic Hyperplasia Active 04/07/2018 ? Primary Erectile Dysfunction Active 04/07/2018 ? Chronic Low Back Pain Active 04/07/2018 ? Osteoarthritis of Knee Active 09/22/2018 ? Fatigue Active 10/17/2018 ? Atypical Chest Pain Active 10/17/2018 ? Paroxysmal Atrial Fibrillation Active 10/31/2018 ? Eczema Active 10/31/2018 ? Adult Health Examination Active 03/24/2019 ? Hyperlipidemia Active 09/14/2019 ? Obesity Active 09/14/2019 ? Obstructive Sleep Apnea Syndrome Active 09/14/2019 ? Dyspnea Active 09/14/2019 ? Edema Active 11/23/2019 ? Lightheadedness Active 01/14/2020 ? Chronic Kidney Disease Stage 3 Active 02/12/2020 ? Screening Colonoscopy Active 03/28/2020 ? Hemorrhoids Active 05/12/2020 ? Diverticular Disease Active 05/12/2020 ? Polyp Active 05/12/2020 ? Congestive Heart Failure Active 06/09/2020 ? Poor Short-term Memory Active 01/13/2021 ? Procedures Date Name Performed by ? 12/20/2020 Total Replacement of Left Knee Joint Inf ormation not available [place] [facility] [place] Colonoscopy Information not avai lable Notes: with polyp removal 1 large at 20cm, Repeat in 6-12 months 10/09/2018 Arthroscopy of Knee Information not avai lable Notes: [facility], right knee with cement placed in leg bone Vaccine List Vaccine Type COVID-19, mRNA, LNP-S, PF, 100 mcg/0.5 m L dose 11/30/2020?100 mcg 12/28/2020?100 mg Tdap 05/07/2017 Social History Tobacco Smoking Status Former Smoker Notes: started smoking at age 19, max 3 ppd. q uit 1986 Are you currently employed? N Are you blind or do you have N Notes: W ears reading difficulty seeing? glasses What is your code status? 0 How much tobacco do you chew? 1/day Notes: started chewing at age 37, Chews 1 bailee ch /2 weeks What was the date of your most 03/08/2021 recent tobacco screening? Do you have an advanced directive? N What is your exercise level? Occasional Notes: w alk 3-5x wk How many years have you smoked 40 Notes: quit 1986 tobacco? Live alone or with others? 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 Right Animal exposure? Y Language Difficulties No Notes: mohawk What is your current pack years? 30ormorepackyears Are you passively exposed to N smoke? 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 What is your level of caffeine Occasional Notes: Coffee: 1 consumption? cup/daySoda: 1 can/d ay What is your occupation? retired Family History Relation Problem Onset Age of Age Notes Sister Hypertensive disorder (No N/A (No No nish) Information) Mother Cerebrovascular accident (No N/A (No Notes) Information) Mother Diarrhea (No N/A (No Notes) Information) Father Alcoholism (No N/A (No Notes) Information) Brother Alcoholism (No N/A both brothers Information) Functional Status No Impairment. Past Encounters 04/07/2021 Adult Health Examination; Chronic Kidney Disease Stage 3 Crescencio Bhardwaj MD: [address] [place] [address], Ph. 03/08/2021 Tick Bite EDIS Mayers: [address] [place], [place] [address]je[place] [address], Ph. History of Present Illness ? Medicare Annual Wellness Vis it Reported By: Patient Social/Behavioral History: Diet and Nutrition: high ca rbohydrate meals; is trying to cut back and eat healthier. Fracture Risk: no recent explained fracture. Physical Activity: decreased physical activity Mental Status:: Depression Risk: never feels sad, empty, or tearful, no loss of interest in activiti es, no significant changes in weight, no agitation, no los s of energy, no thoughts of suicide, sleep disturbances or insomnia. Orientation: no disorientation to time, no d isorientation to date, no disorientation to place. Con centration and Memory: no decreased concentrating abil ity, no memory lapses or loss, does not forget words. Speec h/Motor difficulties: no speech difficulties, no diff iculty expressing formulated concepts, no difficulty with fine manipulative tasks, no difficulty writing/copying, does not knock things over when trying to pick them up Functional Ability: Hearing: difficulty hearing over background noise, requires TV, radio at high v olume. Vision: no vision problems; wears reading glas ses sometimes. Activities of Daily Living: able to bathe with limited or no assistance, able to contol urination and bowels, able to dress with limited or no assistance, ab le to feed self with limited or no assistance, able to ge t out of chair or bed with limited or no assistance, ab le to groom with limited or no assistance, able to toilet w ith limited or no assistance. Instrumental Activities of D aily Living: able to do house work with limited or no assi stance, able to grocery shop with limited or no assistanc e, able to manage medications with limited or no assistanc e, able to manage money with limited or no assistance, ab le to prepare meals with limited or no assistance, ab le to use the phone with limited or no assistance. Fa lls Risk Assessment: no frequent falls while walking . Home Safety: no unsafe servando hazzards, no unsafe stairs, working smoke/CO detectors, use of seatbelts Note: <p>This is 75-year-old male patient here to see provider for 1 year annual exam. Colonoscopy at [facility] in 04/2020. Per their note it said repeat in 6-12 months. </p>Review of Systems: ROS as noted in the HPI Review of Systems ? Notes: <p>13 point review of system s otherwise unrevealing or stable.
</p> Physical Exam ? Notes: <p>General Mental Status - A lert. General Appearance - Not in acute distress. Orientation - Oriented X3. M orbidly obese.</p><p>Skin General Color - Normal color. Moisture - Dry. [place] rature - Warm. Texture - Rough. Thickness - Thick. Mobility & Turgor - Normal t urgor. Rashes - No Rashes. Lesion over right neck which is a large wide-based skin tag 12 mm diameter, slightly dark flesh-colored without hyperp igmentation and soft/mobile.</p><p>HEENT Head Shape - Normocephalic. Ears with clear EACs and normal TMs bilaterally. Eye Sclera/Conjunctiva - Bilater al - Conjunctiva are pink, Not Yellow. Pupils equal and react to light sym metrically and extraocular movement intact. Mouth & Throat Oropharynx - Oral M ucosa - [place] and moist without evidence of ulceration, inflammation or drainage. Denture plates upper and lower.</p><p>Neck - Supple w ith no carotid bruits. No palpable thyromegaly.</p><p>Chest and Lung Exam reveals - normal excursion with symmetric chest solis, maria eugenia l resonance, no flatness or dullness and on auscultation, normal breath sounds, no adventitious sounds and normal vocal resonance.</p><p>Cardiovascu lar Auscultation Rhythm - Irregularly irregular. Heart Sounds - S1 WNL and S2 WNL, No S3, No S4. Murmurs & Other Heart Sounds - Auscultation of the heart reveals - No Murmurs.</p><p>Abdomen Inspection reveals - No dist ention. Contour - Obese with large pannus. Palpation/Percussion Palpati on and Percussion of the abdomen reveal - Soft and Non Tender. Auscultation of the abdomen reveals - Bowel sounds normal.</p><p>Genitalia/Rect al - Normal uncircumcised penis and normal testicles within normal scro coy. Rectal exam external fleshy skin tags versus external hemorrhoids which a re non-thrombosed with normal sphincter tone, no rectal masses, prostate firm , smooth surface and symmetrical at 40 g without palpable nodules and nontend er.</p><p>Peripheral Vascular Upper Extremity Inspection - Bilateral - Nor mal - No Clubbing, No Cyanosis, No Edema, Pulses Intact. Lower Extremity Palp ation - Edema - Bilateral - Non-pitting edema. Decreased peripheral pulses over the left lower extremity with 2+ dorsalis pedis on the right, normal c apillary refill bilaterally.</p><p>Neurologic evaluation reveals - Muscle Strength is normal and Muscle tone is normal. Coronal nerves II through XI I grossly intact. [place] monofilament testing both feet intact.</p ><p>Neuropsychiatric The patient's mood and affect are described as - no rmal. Judgment and Insight - the patient displays appropriate judgment regardi ng every day activities, judgment is appropriate in social situations, there is a lack of insight concerning matters relevant to self. Speech - loud. Thou ght Processes/Cognitive Function - pressured and appropriate fund of knowledg e, no impairment of detention memory, no impairment of short term mem ory.</p><p>Musculoskeletal General Movements - Patient has adequate range o f motion. Joints and Muscles - Normal joints and muscles.</p><p>Spine - postu re normal with decreased ROM; tender over lumbar spine.</p><p>Knees - Osteoar thritic changes on both knees with fair range of motion status post bilateral TKA.</p><p>Lymphatic General Description - No Generalized lymphadenopathy. </p>
--- OUTSIDE RECORDS SUMMARY | 2021-05-18 12:41 | XMS_ITS | Encounter Summary ---
:1945 Author Care Team Providers Name Role Phone Crescencio Bhardwaj MD Primary Care Provider [phone] Camilo Infante MD Accounting Machine Mechanic [phone] Reason for Visit 75 yr. old male here for evaluation of a tick bite. Assessment and Plan 1. Tick bite Tick attached x 3 - 4 days, re moved more than 72 hours, does not meet criteria for ABX prophylaxis. pt has no fever, myalgias, palpitations, rash, or headaches. will check lyme PCR in a week, more likely to be positive then. pt is a greeable. Tdap 2017 ? Lyme DNA, qualitative PCR, urine Discussion Note: None recorded.Patient educational handouts: No information available. Plan of Care Reminders Provider Appointments Office 30 Neno Carlos, 07/10/2021 CONSULTING SALES MANAGER 10:00AM ? Nurse 20 Nurse Pc ruchi 09/22/2021 8:20AM ? Follow up 20 Asa Bhardwaj, 09/29/2021 12:40PM ? Awv 20 Crescencio collins, 04/17/2022 9:00AM Lab Lyme DNA, Clayton sutton Qualitative PCR, Urine 03/08/2021 Hospital Lab (Internal) Referral None recorded. ? ? Procedures None recorded. ? ? Surgeries None [...] Pressure 5 ft 2 in 270 lbs 49.4 kg/m2 112/76 mm[Hg] Results Lab Results None recorded. Allergies Code Code System Name Reaction Severity [...] Knee Joint Inf ormation not available Notes: [facility] [place] Colonoscopy Information not avai lable Notes: with polyp removal 1 large at 20cm, Repeat in 6-12 months 10/09/2018 Arthroscopy of Knee Information not dre chan Notes: [facility], right knee with cement placed in [...] Animal exposure? Y Language Difficulties No Notes: maori What is your current pack years? 30ormorepackyears [...] Information) Functional Status No Impairment. Past Encounters 03/08/2021 Tick Bite Lali Gaines, RECOVERY COACH: [address] [place] [address], Ph. History of Present Illness ? Skin Lesion Reported By: Patient HPI: Location: back; removed the tick with tweezers, but has concern the head may still be embedded. Pt. denies fever, chills or body aches. He does c/o lightheadedness. As sociated Symptoms: no nausea, no vomiting Notes: <p><span>Pt. was away jerel beltran in [place], and returned this past Saturday, 3 days ago, when his note d a tick on his back. Took it out in the spare person, more than 72 hours ago. He is not clear how long the tick was embedded</span>
</p>< p>
</p><p>ROS denies fevers, myalgias, rash, headaches, palpitation s</p> Review of Systems: ROS as noted in the HPI Review of Systems None recorded. Physical Exam ? Brief PE Reported By: Patient General: General Appearance: healthy- appearing, well-nourished, well-developed. Level of Distress: NAD Skin: Inspection and palpation: wa rm and dry, no lesions, good turgor; right scapula area: abrasion prese nt with central ulcer, pinpoint in size, no insect parts or foreign mate rial seen, no rash or erythema migrans Psychiatric: Affect appropriate; calm, co operative
[2021-05-18 13:06] LABS: Abs Immature Grans 0.07 10^3/uL (0.0-0.06); Absolute Basophil Count 0.05 10^3/uL (0.0-0.2); Absolute Eosinophil Count 0.18 10^3/uL (0.0-0.7); Absolute Lymphocyte Count 1.05 10^3/uL (1.2-3.4); Absolute Monocyte Count 0.77 10^3/uL (0.1-0.8); Absolute Neutrophil Count 5.62 10^3/uL (1.2-6.7); Basophils % 0.6; Eosinophils % 2.3; HCT 43.7 % (40.0-50.0); HGB 14.1 g/dL (13.5-17.5); Immature Grans % 0.9; Lymphocytes % 13.6; MCH 29.7 pg (27.0-33.0); MCHC 32.3 % (32.0-36.0); MCV 92.2 fL (80-95); MPV 10.6 fL (8.0-11.0); Monocytes % 9.9; Neutrophils % 72.7; Nucleated RBC 0 %; Platelet Count 260 10^3/uL (130-400); RBC 4.74 10^6/uL (4.36-5.78); RDW 13.3 % (11.8-14.1); RDW-SD 45.1 fL; WBC 7.74 10^3/uL (4.4-10.8)
[2021-05-18 15:05] LABS: Magnesium 2.2 mg/dL (1.8-2.4)
[2021-05-18 15:18] LABS: ALT 25 U/L (16-63); AST 12 U/L (15-37); Albumin 3.6 g/dL (3.4-5.0); Alkaline Phosphatase 115 U/L (46-116); BUN 16 mg/dL (7-18); Bilirubin, Total 0.4 mg/dL (0.2-1.0); CREATININE 1.3 mg/dL (0.70-1.30); Calcium 9.3 mg/dL (8.5-10.1); Chloride 104 mmol/L (98-107); Estimated GFR 54.11 (mL/min/1.73m2); Glucose 103 mg/dL (74-106); NT-proBNP 922 pg/mL (<300); Potassium 4.7 mmol/L (3.5-5.1); Sodium 141 mmol/L (136-145); Total Protein 6.6 g/dL (6.4-8.2)
[2021-05-18 15:26] LABS: GGT 34 U/L (15-85)
== END 2021-05-18 12:34 | disposition home or self-care (01) ==
LOC: LBO 12:38
PROVIDERS: PCP Family Medicine; Visit Provider Surgery
DX: D37.4 Neoplasm of uncertain behavior of colon (principal); K57.30 Diverticulosis of large intestine without perforation or abscess without bleeding; E78.5 Hyperlipidemia, unspecified; I50.32 Chronic diastolic (congestive) heart failure; R60.0 Localized edema; I48.91 Unspecified atrial fibrillation; F10.11 Alcohol abuse, in remission; J44.9 Chronic obstructive pulmonary disease, unspecified; E66.9 Obesity, unspecified; Z12.11 Encounter for screening for malignant neoplasm of colon; I10 Essential (primary) hypertension
CPT/HCPCS: 36415; 80053; 99212; 82977; 83735; 83880; 85025

== ENCOUNTER → 2021-08-24 15:24 | Outpatient (BNVA) | payer MEDICARE, MEDICAID, SELFPAY | PROVIDERS: PCP Family Medicine; Referring Provider Family Medicine; Visit Provider Physical Therapy Assistant | DX: Z12.11 Encounter for screening for malignant neoplasm of colon (principal); Z86.010 Personal history of colon polyps ==

== ENCOUNTER 2021-08-28 03:01 | Outpatient (CLI) | payer MEDICARE, MEDICAID, SELFPAY ==
[2021-08-28 16:13] LABS: Source Nasal/Nares
[2021-08-28 21:40] LABS: COVID-19 PCR Negative (Negative)
== END 2021-08-28 03:02 | disposition home or self-care (01) ==
LOC: LBO 03:08
PROVIDERS: PCP Family Medicine; Visit Provider Surgery
DX: Z20.822 Contact with and (suspected) exposure to COVID-19 (principal); Z01.818 Encounter for other preprocedural examination
CPT/HCPCS: 87635

== ENCOUNTER 2021-08-30 07:26 | Day surgery (SDC) | payer MEDICARE, MEDICAID, SELFPAY ==
--- NOTE | 2021-08-30 06:28 | COLE_ITS ---
Colonoscopy Report Date of procedure: 08/30/21 Pre-op diagnosis general: Hx of polyps Post-op diagnosis procedure note: other (polyps, internal hemorrhoids and diverticulosis) Procedure: Colonoscopy with polypectomy Surgeon: Mirtha Marquez Anesthesia Type: General:No Airway (John Santos, LYDIA) Estimated blood loss (mL): 4 Pathology: other (Proximal transverse polyps, distal transverse, descending polyps, sigmoid polyp) Complications: None Disposition: same day Indications: The patient is here for Colonoscopy pre-op. His last screening was in 2019 and was remarkable for villious/tubulovillous adneoma and severe diverticular disease with recommended f/u in 1 year. He has no family history of colon cancer. He has not had any bowel habit changes. -Discussed colonoscopy bowel prep as well as the procedure. Discussed possible complications of the procedure to include bleeding, pain, perforation, missed small lesion/polyp, sore throat, aspiration and adverse reaction to the medications. Questions were answered to patient?s satisfaction. No guarantees were implied or given. Prep: Miralax/Dulcolax Procedure Start Time: 08:47 Procedure End Time: 09:16 Retraction Time: 15 minutes Findings: Multiple sessile polyps Ferrara diverticulosis Grade 1 internal hemorrhoids Procedure Description: After informed consent was obtained the patient was taken to the procedure room and placed in a left decubitous position. Monitors were applied and a time out was done. The patients name, date of , procedure, allergies to medications and metal in their body was reviewed. The patient was then sedated. Once sedated and comfortable a rectal exam was done. External exam was normal. Internal exam revealed a normal sphincter tone and no palpable masses. The prostate felt smooth. The scope was then introduced and retro-flexed. Grade 1 internal hemorrhoids were identified on retroflexion. No polyps or masses were identified on retro- flexion. The scope was then advanced to the cecum without difficulty. The ileocecal vlave and appendiceal orifice were identified. The prep was good. The scope was then slowly retracted over 16 minutes back into the rectum. Polyps were removed with hot snare in the proximal transverse colon and in the descending colon. Polyps were removed with a cold forceps in the proximal and distal transverse colon, descending colon and sigmoid colon. There was ferrara diverticulosis noted. The scope was removed and the patient was woken up and taken back to Same day surgery in stable condition. The patient tolerated the procedure well and there were no immediate complications. Follow up: The patient should follow up in 3 years unless they develop changes in bowel habits or other new gastrointestinal complaints.
--- NOTE | 2021-08-30 06:29 | HPE_ITS ---
Date of service: 08/30/21 History of Present Illness Narrative: 75 y/o male with history of obesity, chronic atrial fibrillation, JUAN CARLOS and CHF presents for update H&P for colonoscopy screening. He was previously scheduled however His last screening was in 2019 and was remarkable for villious/tubulovillous adneoma and severe diverticular disease with recommended follow up in 1 year. He denies a family history of colon cancer. He denies any changes in bowel habits including bloody or black tarry stools, abdominal pain, diarrhea or constipation. He denies constitutional symptoms. Denies use of marijuana or any other recreational or illegal drugs. He denies chest pain, palpitations, dyspnea or dyspnea with exertion. He denies prior history or family history of adverse reactions or complications with anesthesia. The patient denies any history of stroke, DC, seizures, bleeding or clotting disorders. He has metal implanted in bilateral knees. No changes in her health since she was seen in the office PFSH All Active Problems (Updated 08/29/21 @ 09:25 by Moy Cisse) Chronic kidney disease, stage 3 (Acute ~02/12/20) Edema (Acute) Benign hypertension (Acute ~04/07/18) COPD (chronic obstructive pulmonary disease) (Chronic) Benign prostate hyperplasia (Chronic) Dyspnea (Acute) Obesity (Chronic) Hyperlipidemia (Acute) Positive colorectal cancer screening using Cologuard test (Acute ~04/14/20) Atrial fibrillation with controlled ventricular rate (Acute) Diastolic dysfunction with chronic heart failure (Acute) JUAN CARLOS and COPD overlap syndrome (Acute) Rectal bleeding (Acute) Alcohol abuse, in remission (Acute) Adenomatous polyp of sigmoid colon (Acute) Diverticular disease of large intestine (Acute) Internal and external bleeding hemorrhoids (Acute) Villous adenoma of colon (Acute) Medical History (Updated 08/29/21 @ 09:25 by Moy Cisse) Adenomatous colon polyp Atypical chest pain (~10/17/18) Follows up with Dr. Concepcion at [facility] [place] 02/2020 Chronic lower back pain Congestive heart failure F/U with Dr. Concepcion @ [facility] [place], last seen spring Eczema ED (erectile dysfunction) Fatigue Hemorrhoids Lightheadedness JUAN CARLOS (obstructive sleep apnea) Osteoarthritis (arthritis due to wear and tear of joints) Osteoarthritis of knee Paroxysmal atrial fibrillation (~10/31/18) Peripheral neuropathy Poor short term memory Tick bite with subsequent removal of tick Surgical History (Updated 08/29/21 @ 09:25 by Moy Cisse) Hx of total knee replacement Social History (Updated 08/28/21 @ 08:38 by PAVREZ Plasencia) Smoking/Tobacco Use Status: Former Tobacco Use Quit Date: 09/16/82 Smokeless tobacco user: chewing tobacco Smoking risk assessment performed?: Yes Alcohol Intake: former Drug use: Never Substance use type: does not use Current gender identity: female Additional Social history: Unable to assess [facility] Allergies and Home Medications Allergies Allergy/AdvReac Type Severity Reaction Status Date / Time No Known Allergies Allergy Unverified 08/29/21 09:26 Home Medications Medication Instructions Recorded Confirmed Type albuterol sulfate 90 mcg/actuation 2 puff IH QID 04/19/20 08/29/21 History aerosol inhaler metoprolol succinate 25 mg capsule 25 mg PO DAILY 04/19/20 08/29/21 History sprinkle, ext. release 24 hr potassium chloride 10 mEq 10 meq PO DAILY 04/19/20 08/29/21 History capsule,extended release spironolactone 25 mg tablet 25 mg PO DAILY 04/19/20 08/29/21 History umeclidinium 62.5 mcg-vilanterol 1 inh IH DAILY 04/19/20 08/29/21 History 25 mcg/actuation powdr for inhalation acetaminophen 650 mg 650 mg PO Q12H 03/30/21 08/29/21 History tablet,extended release apixaban 5 mg tablet 5 mg PO BID 03/30/21 08/29/21 History gabapentin 300 mg capsule 600 mg PO QHS cap 03/30/21 08/29/21 History lidocaine 4 % topical patch 1 patch TOPICAL BID PRN 03/30/21 08/29/21 History polyethylene glycol 3350 17 17 g PO DAILY 03/30/21 08/29/21 History gram/dose oral powder tamsulosin 0.4 mg capsule 0.4 mg PO DAILY cap 03/30/21 08/29/21 History torsemide 20 mg tablet 20 mg PO DAILY tab 03/30/21 08/29/21 History bisacodyl 5 mg tablet,delayed 5 mg PO ONCE #4 tab 08/24/21 08/29/21 Rx release polyethylene glycol 3350 17 17 g PO ONCE #238 g 08/24/21 08/29/21 Rx gram/dose oral powder
--- NOTE | 2021-08-30 06:31 | W.PM.DSUDISC ---
Discharge Plan Disposition Patient Disposition: HOME Condition: Good Discharge Details Reason For Visit: Colonoscopy Attending Provider: Mirtha Marquez Primary Care Provider: Crescencio Bhardwaj Home Meds and New Rx's Prescriptions: Continued Anoro Ellipta 62.5-25 mcg/actuation blister with device 1 inh IH DAILY RF: 0 metoprolol succinate 25 mg capsule,sprinkle,ER 24hr 25 mg PO DAILY RF: 0 potassium chloride 10 mEq capsule, extended release 10 meq PO DAILY RF: 0 spironolactone 25 mg tablet 25 mg PO DAILY RF: 0 albuterol sulfate [Ventolin HFA] 90 mcg/actuation HFA aerosol inhaler 2 puff IH QID RF: 0 Eliquis 5 mg tablet 5 mg PO BID RF: 0 gabapentin 300 mg capsule 600 mg PO QHS RF: 0 tamsulosin 0.4 mg capsule 0.4 mg PO DAILY RF: 0 torsemide 20 mg tablet 20 mg PO DAILY RF: 0 acetaminophen [Tylenol Arthritis Pain] 650 mg tablet extended release 650 mg PO Q12H RF: 0 lidocaine [Salonpas (lidocaine)] 4 % adhesive patch,medicated 1 patch topical BID PRNRF: 0 Discharge Instructions Instructions: Hemorrhoids (DC), Diverticulosis (DC), Colorectal Polyps (DC) Additional Instructions: Findings: Multiple polyps internal hemorrhoids diverticulosis Follow up: 3 years Please call if you develop: fevers >101.5 Nausea or Vomiting Abdominal pain that is not transient Rectal bleeding that is more then a tbsp A hard abdomen and inability to pass gas DAY SURGERY UNIT POST ENDOSCOPY INSTRUCTIONS Instructions for everyone who is given Anesthesia: For your safety, please do the following for the next 24 Hours: a. Do not drive or operate dangerous equipment b. Do not drink alcohol beverages or use any recreational drugs for the first 24 hours or while taking pain medications. The medications in your body may have a reaction that can be dangerous. c. Do not make any important decisions or sign any important papers 1. Generally there are no restrictions on your activity after a day or so has gone by, but you may feel a bit fatigued for a few days. 2. After you arrive home you may have a light meal and return to a normal diet as you can tolerate it without feeling sick to your stomach. 3. After surgery, you may feel pain or discomfort. This should be only transient, but if it persists please contact your doctor. 4. If there are any questions regarding the findings of your procedure, please feel free to contact your doctor. 6. If you are unable to contact your doctor with a problem, contact the hospital at [phone]. 7. Continue all your regular medications unless directed otherwise. I understand the above instructions and have no questions. Signature of Patient or Responsible Adult Escort Date/Time Name of Responsible Adult Escort Signature of Nurse Date/Time Activity:: Activity as Tolerated Diet:: high fiber diet Discharge Orders Discharge Orders: Discharge Order (Routine); Ordered 08/30/21 Ordered By: Mirtha Marquez
[2021-08-30 07:40] VITALS: BP 146/79; PULSE 94; RESP 16; TEMP 36.5; O2SAT 98
--- NOTE | 2021-08-30 07:48 | W.ANESPRE ---
General Info Date of Service Date Performed: 08/30/21 Height: 5 ft 5 in Weight: 124.2 kg Body Mass Index (BMI): 45.6 Surgical Procedure: Operation Date: 08/30/21 09:05 Proposed Procedures Side Surgeon p Colonoscopy POSSIBLE POLYPECTOMY Mirtha Marquez MD Meds Allergies and Home Medications Allergies Allergy/AdvReac Type Severity Reaction Status Date / Time No Known Allergies Allergy Verified 08/30/21 07:36 Home Medication Medication Instructions Recorded albuterol sulfate 90 mcg/actuation 2 puff IH QID 04/19/20 aerosol inhaler metoprolol succinate 25 mg capsule 25 mg PO DAILY 04/19/20 sprinkle, ext. release 24 hr potassium chloride 10 mEq 10 meq PO DAILY 04/19/20 capsule,extended release spironolactone 25 mg tablet 25 mg PO DAILY 04/19/20 umeclidinium 62.5 mcg-vilanterol 1 inh IH DAILY 04/19/20 25 mcg/actuation powdr for inhalation acetaminophen 650 mg 650 mg PO Q12H 03/30/21 tablet,extended release apixaban 5 mg tablet 5 mg PO BID 03/30/21 gabapentin 300 mg capsule 600 mg PO QHS cap 03/30/21 lidocaine 4 % topical patch 1 patch TOPICAL BID PRN 03/30/21 tamsulosin 0.4 mg capsule 0.4 mg PO DAILY cap 03/30/21 torsemide 20 mg tablet 20 mg PO DAILY tab 03/30/21 Current Visit Medications: Current Medications Generic Name Dose Route Start Last Admin Trade Name Freq PRN Reason Stop Dose Admin Hyoscyamine Sulfate 0.125 mg 08/30/21 06:31 Hyoscyamine 0.125 Mg Sl/Oral/Chew SL DIRECTED PRN Ringer's Solution 1,000 mls @ 80 mls/hr 08/30/21 06:00 IV 09/28/21 23:59 [facility] IV Miscellaneous Supplies 1 each 08/30/21 06:00 Iv Access IV 09/28/21 23:59 DIRECTED [facility] Ondansetron HCl 4 mg 08/30/21 06:31 Ondansetron 4 Mg/2 Ml Vial IVP Q4H PRN PRN Nausea / Vomiting Sodium Chloride 0 ml 08/30/21 06:00 Normal Saline Flush 10 Ml Syr IV 09/28/21 23:59 PRN PRN Sodium Chloride 0 ml 08/30/21 06:00 Normal Saline 10 Ml Vial IJ 09/28/21 23:59 DIRECTED PRN Sterile Water 0 ml 08/30/21 06:00 Water,Injection,Sterile 10 Ml Vial IJ 09/28/21 23:59 DIRECTED PRN PFSH Active Problems Active Problems: Problem Status Onset Code Chronic kidney disease, stage 3 ~02/12/20 N18.3 Edema R60.9 Benign hypertension ~04/07/18 I10 COPD (chronic obstructive pulmonary disease) J44.9 Benign prostate hyperplasia N40.0 Dyspnea R06.00 Obesity E66.9 Hyperlipidemia E78.5 Positive colorectal cancer screening using Cologuard test ~04/14/20 R19.5 Atrial fibrillation with controlled ventricular rate I48.91 Diastolic dysfunction with chronic heart failure I50.32 JUAN CARLOS and COPD overlap syndrome G47.33, J44.9 Rectal bleeding K62.5 Alcohol abuse, in remission F10.11 Adenomatous polyp of sigmoid colon D12.5 Diverticular disease of large intestine K57.30 Internal and external bleeding hemorrhoids K64.4, K64.8 Villous adenoma of colon D37.4 Medical History Medical History Adenomatous colon polyp Atypical chest pain (~10/17/18) Follows up with Dr. Concepcion at [facility] [place] 02/2020 Chronic lower back pain Congestive heart failure F/U with Dr. Concepcion @ [facility] [place], last seen spring Eczema ED (erectile dysfunction) Fatigue Hemorrhoids Lightheadedness JUAN CARLOS (obstructive sleep apnea) Osteoarthritis (arthritis due to wear and tear of joints) Osteoarthritis of knee Paroxysmal atrial fibrillation (~10/31/18) Peripheral neuropathy Poor short term memory Tick bite with subsequent removal of tick Surgical History Surgical History Hx of total knee replacement Tobacco Smoking/Tobacco Use Status: Former Tobacco Use Smokeless tobacco user: chewing tobacco Alcohol Alcohol Intake: former Substance Use Substance use: Never Substance use type: does not use Vital Signs and Lab Results Vital Signs Most Recent Vital Signs in EMR: Most Recent Vital Signs Temp Pulse Resp BP Pulse Ox 36.5 C 94 H 16 146/79 H 98 08/30/21 07:40 08/30/21 07:40 08/30/21 07:40 08/30/21 07:40 08/30/21 07:40 Lab Results Blood Type / Crossmatch: No Data to Display Complete Blood Count: No Data to Display Complete Metabolic Panel: No Data to Display Liver Function Panel: No Data to Display Coagulation Panel: No Data to Display Cardiac Panel: No Data to Display Arterial Blood Gas: No Data to Display Venous Blood Gas: No Data to Display Pancreas Panel: No Data to Display Thyroid Panel: No Data to Display Infectious Disease: Coronavirus (COVID-19)(PCR) Negative (Negative) 08/28/21 10:17 08/28/21 Coronavirus 2019 Source Nasal/Nares 08/28/21 10:17 08/28/21 Blood Cultures: No Data to Display Toxicology Panel: No Data to Display Imaging and Studies Imaging and Studies Study information below may be from another EMR and interpreted by another provider. Please see original notes in EMR for more complete details. Stress Test Summary: 2019: Normal Perfusion Cardiac Catheterization Summary: 10/07/19: EF 60%, Mild LVH, PAS 30-40. No hemodynamically significant valve issues. Pulmonary Function Summary: DATE OF ADMIT: 04/25/15 : 1945 INTERPRETATION SPIROMETRY: Spirometry shows no evidence of obstructive airways disease. No bronchodilator testing was carried out. LUNG VOLUMES: Lung volumes show no evidence of restriction. DIFFUSION CAPACITY: Normal. AIRWAY RESISTANCE: Normal. IMPRESSION: Normal pulmonary function study. Clinical correlation recommended Anesthesia Assessment and Plan Anesthesia History Personal History: Delayed Emergence Family History: No Family History of Anesthesia Complications Exercise Tolerance Exercise Tolerance: Metabolic Equivalents<4 Pertinent Negatives Pertinent Negatives: No Symptoms of GERD Cardiac & Pulmonary Exam Cardiac Exam: Normal S1/S2 Heart Sounds Pulmonary Exam: Clear Bilateral Breath Sounds Implantable Cardiac Device Does patient have a Pacemaker or an ICD?: No Airway Exam Known Difficult Airway: No Mallampati Class: 3 Mouth Opening: Narrow (< 3cm) Thyromental Distance: Less than 3 cm Neck Range of Motion: Full ROM Neck Circumference: Thick Teeth Condition: Removable Dentures/Plates Upper and Removable Dentures/Plates Lower ASA Classification ASA Score: ASA 3 Emergency Case?: No NPO Status NPO Status: NPO Clears >2 hours, Solids >8 hours Anesthesia Plan Resuscitation Status: Full Code Anesthesia Technique: General Anesthesia Airway Planned: Natural Airway Monitors Used: Standard Monitors
[2021-08-30] MEDS: Lactated Ringers 1,000 ML 80 ML IV (08:07)
[2021-08-30 08:30] VITALS: BMI 45.6
--- NOTE | 2021-08-30 08:53 | BOWEL_PTH ---
PATIENT: Liang Kumar LOC: [facility] U#:[id number] AGE/SX: 75/M ROOM: RE08/30/[address]: Mirtha Marquez MD : 1945 BED: DIS: 08/30/2021 SPEC #: [id number] RECD: 08/30/21 12:58 STATUS: ROBERT REQ #: [id number] FERMIN: 08/30/21 08:[address]: Mirtha Marquez DEPT: Surgical Specimen RECD BY: Eda Parkinson ENTERED: 08/30/21 13:00 SP TYPE: Bowel OTHR DR: Crescencio Bhardwaj Tissues: 1 - BIOPSY BOWEL 2 - BIOPSY BOWEL 3 - BIOPSY BOWEL 4 - BIOPSY BOWEL 5 - BIOPSY BOWEL Procedures: GROSS AND MICRO LEVEL 4 Comments: [id number]
[2021-08-30 09:19] VITALS: BP 133/96; PULSE 93; RESP 20; TEMP 36.5; O2SAT 94
[2021-08-30 09:48] VITALS: BP 143/97; PULSE 88; RESP 20; TEMP 36.6; O2SAT 96
--- NOTE | 2021-08-30 09:59 | W.ANESPOSTOP ---
Postoperative Evaluation Date, Time and Location Date Performed: 08/30/21 Time Performed: 09:55 Patient Location: Day Surgery Unit Vital Signs Most Recent Imported Vital Signs: Most Recent Vital Signs Temp Pulse Resp BP Pulse Ox 36.6 C 88 20 143/97 H 96 08/30/21 09:48 08/30/21 09:48 08/30/21 09:48 08/30/21 09:48 08/30/21 09:48 Pain Score Most Recent Pain Score: Most Recent Pain Score Pain Level 0 08/30/21 09:48 Assessment Mental Status: Arousable with meaningful communication Airway and Respiratory Function: Patent airway with normal (patient baseline) respiratory exam Cardiovascular Function: Hemodynamically Stable Hydration Status: Adequately Hydrated Nausea & Vomiting: No Nausea or Vomiting Pain: Pt. Denies Any Pain Peripheral Nerve Block: Patient did not receive a nerve block
== END 2021-08-30 10:33 | disposition home or self-care (01) ==
LOC: SUR 07:26
PROVIDERS: PCP Family Medicine; Visit Provider Surgery
PROC: 0DJD8ZZ Inspection of Lower Intestinal Tract, Via Natural or Artificial Opening Endoscopic (ICD-10-PCS; CPT 45378; principal; 2021-08-30 09:00)
DX: Z09 Encounter for follow-up examination after completed treatment for conditions other than malignant neoplasm (principal); Z86.010 Personal history of colon polyps; D12.3 Benign neoplasm of transverse colon; K57.30 Diverticulosis of large intestine without perforation or abscess without bleeding; K64.8 Other hemorrhoids; D12.4 Benign neoplasm of descending colon; D12.5 Benign neoplasm of sigmoid colon
CPT/HCPCS: 45385; 45380; 88305

== ENCOUNTER 2021-09-23 18:11 | Emergency (ER) | payer MEDICARE, MEDICAID, SELFPAY ==
[2021-09-23] VITALS (46 sets, daily range): BP systolic 122–178; BP diastolic 55–103; PULSE 64–102; RESP 8–24; TEMP 36.6; O2SAT 92–99
--- NOTE | 2021-09-23 18:00 | RT.EKG_ITS ---
APPROVED REPORT Exam: Resting ECG Reason for Exam: SOB Patient Location: E HR:78 bpm ECG Measurements Heart Rate 78 AXIS [place] [id number] P [id number] QRSd 86 QRS -62 QT 374 T 38 QTc 426 Conclusion Atrial fibrillation. Inferior q waves.Q >35mS, II III aVF
--- NOTE | 2021-09-23 18:15 | DI.RAD_ITS ---
Exam(s) XR PORTABLE CHEST AP EXAM: XR PORTABLE CHEST AP CLINICAL HISTORY: SOB TECHNIQUE: 2D digital imaging was performed. COMPARISON: CR RIGHT SHOULDER COMPLETE from 03/26/2016 FINDINGS: LUNGS: Suboptimal penetration of the lung bases. Poor pulmonary inflation. Overlying abdominal soft tissues. No infiltrate visible. No pleural abnormality seen. HEART: Normal. Mild aortic tortuosity BONES: Unremarkable. IMPRESSION: No acute pulmonary findings. DATA REPOSITORY: RADIATION DOSE DELIVERED:
[2021-09-23 18:34] LABS: Source Nasal/Nares
--- NOTE | 2021-09-23 18:38 | ED.GENADUL_ITS ---
Discharge Plan Disposition Patient Disposition: HOME Condition: Stable Discharge Details Clinical Impression: COPD (chronic obstructive pulmonary disease), Shortness of breath Primary Care Provider: Crescencio Bhardwaj ED Provider: Camilo Blanco Home Meds and New Rx's Prescriptions: New azithromycin 250 mg tablet 250 mg PO DAILY 4 Days Qty: 4 RF: 0 Continued Anoro Ellipta 62.5-25 mcg/actuation blister with device 1 inh IH DAILY RF: 0 metoprolol succinate 25 mg capsule,sprinkle,ER 24hr 25 mg PO DAILY RF: 0 potassium chloride 10 mEq capsule, extended release 10 meq PO DAILY RF: 0 spironolactone 25 mg tablet 25 mg PO DAILY RF: 0 albuterol sulfate [Ventolin HFA] 90 mcg/actuation HFA aerosol inhaler 2 puff IH QID RF: 0 Eliquis 5 mg tablet 5 mg PO BID RF: 0 gabapentin 300 mg capsule 600 mg PO QHS RF: 0 tamsulosin 0.4 mg capsule 0.8 mg PO DAILY RF: 0 torsemide 20 mg tablet 20 mg PO DAILY RF: 0 acetaminophen [Tylenol Arthritis Pain] 650 mg tablet extended release 650 mg PO Q12H RF: 0 lidocaine [Salonpas (lidocaine)] 4 % adhesive patch,medicated 1 patch topical BID PRNRF: 0 Discharge Instructions Additional Instructions: increase your torsemide from 20mg to 40mg daily until you see your primary care provider this week if you feel more ill, have worsening shortness of breath or chest pain/pressure return to the emergency department Medical Decision Making <Domingo Brooke MD - Last Filed: 09/23/21 19:24> 75-year-old male with a history of COPD, paroxysmal atrial fibrillation, CHF who presents with 1 week of dry cough, shortness of breath that is worsened with exertion and worsened while lying flat so that he has now begun to sleep in a recliner. States he questions approximate 5 pound weight gain. He denies to me chest pain. He will note sick contacts with his grandchildren. He reports being immunized again for COVID-19. Patient's blood pressure 178/100, pulse 75, respirations 19, he is afebrile and oxygenating 96 to 97% at rest on room air. Patient does have edema noted on exam. Differential diagnosis would clued pneumonitis, pneumonia, CHF exacerbation. The patient had IV access established, screening laboratories obtained, COVID-19 test obtained, and patient referred for chest x-ray. EKG reveals known, rate controlled A. fib. Laboratory note a white count of 9.6, 46, platelets 253. Chemistries note sodium 140, potassium 3.3, chloride 100, bicarb 33, BUN 16, creatinine 1.8, troponin negative and BNP 801 with historic range of 632-922. Chest x-ray: Subtle increased interstitial markings Patient given DuoNeb. Will obtain second troponin. Patient to be signed out to Dr. Blanco pending review of both his COVID swab and troponin. If these are negative, would consider increase diuresis at home and consideration of discussing same with Dr. Bhardwaj who is on-call this evening <Camilo Blanco MD - Last Filed: 09/23/21 22:17> covid negative and second troponin negative, he feels well, laughing during exam in no distress. Xray shows interstiatial markings consistent with atelectasis vs developing infiltrates, he denies fevers though has had mild increase in baseline cough. Will have him increase his torsemide from 20mg daily to 40mg daily and start azithromycin. He will f/u with pcp this week and return precautions given Lab Data Lab results reviewed: Yes I reviewed the patient's lab results. HPI <Domingo Brooke MD - Last Filed: 09/23/21 19:24> General Mode of arrival: ambulatory . Date/Time Provider Initiated Documentation: 09/23/21 18:11 . Limitations to Documentation: no limitations . Information obtained by: patient . History of Present Illness 75 year old M presents to the emergency department with the chief complaint of Shortness of breath for 1 week, dry cough, described as moderate, and is localized to the chest. Patient reports no radiation. Patient started experiencing this day(s) and it has been intermittent. Rest improves symptom(s), Movement worsens symptoms . Patient notes cough, shortness of breath and other (Subjective fever at home today); denies chest pain and syncope. Patient did receive the following treatments prior to arrival, none Related Data Home Medications Medication Instructions Recorded Confirmed albuterol sulfate 90 mcg/actuation 2 puff IH QID 04/19/20 09/23/21 aerosol inhaler metoprolol succinate 25 mg capsule 25 mg PO DAILY 04/19/20 09/23/21 sprinkle, ext. release 24 hr potassium chloride 10 mEq 10 meq PO DAILY 04/19/20 09/23/21 capsule,extended release spironolactone 25 mg tablet 25 mg PO DAILY 04/19/20 09/23/21 umeclidinium 62.5 mcg-vilanterol 1 inh IH DAILY 04/19/20 09/23/21 25 mcg/actuation powdr for inhalation acetaminophen 650 mg 650 mg PO Q12H 03/30/21 09/23/21 tablet,extended release apixaban 5 mg tablet 5 mg PO BID 03/30/21 09/23/21 gabapentin 300 mg capsule 600 mg PO QHS cap 03/30/21 09/23/21 lidocaine 4 % topical patch 1 patch TOPICAL BID PRN 03/30/21 09/23/21 tamsulosin 0.4 mg capsule 0.8 mg PO DAILY cap 03/30/21 09/23/21 torsemide 20 mg tablet 20 mg PO DAILY tab 03/30/21 09/23/21 azithromycin 250 mg PO DAILY 4 Days #4 tab 09/23/21 Previous Rx's Medication Instructions Recorded azithromycin 250 mg PO DAILY 4 Days #4 tab 09/23/21 Allergies Allergy/AdvReac Type Severity Reaction Status Date / Time No Known Allergies Allergy Verified 09/23/21 18:25 General Stated Complaint: SOB OTTO: 2 Review of Systems <Domingo Brooke MD - Last Filed: 09/23/21 19:24> Narrative: Denies chest pain. No syncope. Positive sick contacts with his grandchildren who live next-door. Questions subtle weight gain. 8 systems reviewed and otherwise negative PFSH <Domingo Brooke MD - Last Filed: 09/23/21 19:24> All Active Problems (Updated 09/23/21 @ 22:09 by Camilo Blanco MD) Shortness of breath (Acute) Tubulovillous adenoma of colon (Acute) Tubular adenoma of colon (Acute) Chronic kidney disease, stage 3 (Acute ~02/12/20) Edema (Acute) Benign hypertension (Acute ~04/07/18) COPD (chronic obstructive pulmonary disease) (Chronic) Benign prostate hyperplasia (Chronic) Dyspnea (Acute) Obesity (Chronic) Hyperlipidemia (Acute) Positive colorectal cancer screening using Cologuard test (Acute ~07/30/20) referred by Crescencio Bhardwaj MD [place] Atrial fibrillation with controlled ventricular rate (Acute) Diastolic dysfunction with chronic heart failure (Acute) JUAN CARLOS and COPD overlap syndrome (Acute) Rectal bleeding (Acute) Alcohol abuse, in remission (Acute) Adenomatous polyp of sigmoid colon (Acute) Diverticular disease of large intestine (Acute) Internal and external bleeding hemorrhoids (Acute) Villous adenoma of colon (Acute) Medical History Adenomatous colon polyp Atypical chest pain (~10/17/18) Follows up with Dr. Concepcion at [facility] [place] 02/2020 Chronic lower back pain Congestive heart failure F/U with Dr. Concepcion @ [facility], last seen spring Eczema ED (erectile dysfunction) Fatigue Hemorrhoids Lightheadedness JUAN CARLOS (obstructive sleep apnea) Osteoarthritis (arthritis due to wear and tear of joints) Osteoarthritis of knee Paroxysmal atrial fibrillation (~10/31/18) Peripheral neuropathy Poor short term memory Tick bite with subsequent removal of tick Surgical History (Updated 09/12/21 @ 13:10 by Milana Hansen RN) History of colonoscopy (~08/2021) Hx of total knee replacement Social History Smoking/Tobacco Use Status: Former Tobacco Use Quit Date: 09/16/82 Smokeless tobacco user: chewing tobacco Smoking risk assessment performed?: Yes Alcohol Intake: former Drug use: Never Substance use type: does not use Current gender identity: female Do you feel safe at home: Yes Do you feel safe in your relationship?: Yes Exam <Domingo Brooke MD - Last Filed: 09/23/21 19:24> Narrative Exam Narrative: GEN: awake, alert, oriented 3. Pleasant, well groomed, interactive. HEAD: Normocephalic, atraumatic ENT: Mucous membranes moist, oropharynx unremarkable, External ear exam unremarkable EYES: PERRL, EOMI NECK: Full ROM, no INDERJIT, no menigismus CHEST/RESP: Distant, clear without wheeze appreciated CARDIOVASCULAR: Distant, irregularly irregular. 2+ Rad pulse bilateral ABDOMEN: Soft, nontender, no mass. +Bowel sounds EXT: Full ROM, 1-2+ pretibial symmetric edema, no rash Neuro: Grossly normal neurologic exam, conversant, interactive. Psych: Speech fluent, thoughts congruent, affect normal Course <Domingo Brooke MD - Last Filed: 09/23/21 19:24> Vital Signs Vital signs: Vital Signs Temperature 36.6 C 09/23/21 18:22 Pulse 75 09/23/21 18:22 Respiratory Rate 19 09/23/21 18:22 Blood Pressure 178/103 H 09/23/21 18:22 Pulse Oximetry 97 09/23/21 18:22 Temperature 36.6 C 09/23/21 18:22 Temperature Source Skin 09/23/21 18:22 Pulse 75 09/23/21 18:22 Respiratory Rate 19 09/23/21 18:22 Respiratory Effort 09/23/21 18:22 Blood Pressure 178/103 H 09/23/21 18:22 Blood Pressure Position Supine 09/23/21 18:22 Pulse Oximetry 97 09/23/21 18:22 Oxygen Delivery Method Room Air 09/23/21 18:22 Oxygen Flow Rate 0 09/23/21 18:22 Pain Level 0 09/23/21 18:22 Lab/Test Results Lab/Test Results: Laboratory Tests Range/Units 09/23/21 18:25 COVID-19 Source Nasal/Nares Sign Out <Domingo Brooke MD - Last Filed: 09/23/21 19:24> Sign Out Data: Sign Out Comment: Followup repeat Trop, discuss with Dr. Bhardwaj Last updated by Domingo Brooke MD at 09/23/21 19:27
[2021-09-23 18:54] LABS: Absolute Basophil Count 0.06 10^3/uL (0.0-0.2); Absolute Eosinophil Count 0.32 10^3/uL (0.0-0.7); Absolute Lymphocyte Count 1.52 10^3/uL (1.2-3.4); Absolute Monocyte Count 0.95 10^3/uL (0.1-0.8); Basophils % 0.6; Eosinophils % 3.3; HCT 46.3 % (40.0-50.0); HGB 14.8 g/dL (13.5-17.5); Lymphocytes % 15.8; MCH 30.3 pg (27.0-33.0); MCV 94.9 fL (80-95); MPV 9.9 fL (8.0-11.0); Monocytes % 9.8; Neutrophils % 69.5; Nucleated RBC 0 %; Platelet Count 253 10^3/uL (130-400); RBC 4.88 10^6/uL (4.36-5.78); WBC 9.65 10^3/uL (4.4-10.8)
[2021-09-23 19:11] LABS: ALT 23 U/L (16-63); AST 21 U/L (15-37); Albumin 3.3 g/dL (3.4-5.0); Alkaline Phosphatase 128 U/L (46-116); Anion Gap 6.5 mmol/L (3-11); BUN 16 mg/dL (7-18); Bilirubin, Total 0.3 mg/dL (0.2-1.0); CO2 33.5 mmol/L (21.0-32.0); CREATININE 1.8 mg/dL (0.70-1.30); Calcium 8.6 mg/dL (8.5-10.1); Chloride 100 mmol/L (98-107); Estimated GFR 37.17 (mL/min/1.73m2); Glucose 110 mg/dL (74-106); NT-proBNP 801 pg/mL (<300); Potassium 3.3 mmol/L (3.5-5.1); Sodium 140 mmol/L (136-145); Total Protein 7.3 g/dL (6.4-8.2); Troponin I < 50 ng/L (<or=60)
[2021-09-23] MEDS: Albuterol/Ipratropium 3 ML UPD VIAL UPD (19:22)
--- NOTE | 2021-09-23 19:23 | DI.VRAD_ITS ---
PROCEDURE INFORMATION: Exam: XR Chest Exam date and time: 09/23/2021 6:27 PM Age: 75 years old Clinical indication: Cough TECHNIQUE: Imaging protocol: XR of the chest. Views: 1 view. COMPARISON: CR CHEST 2 VIEWS PA,LAT 07/03/2015 10:37 FINDINGS: Lungs: Low lung volumes. Increased interstitial markings compared with prior study. The increased interstitial markings may represent atelectasis or developing infiltrates. Pleural spaces: Unremarkable. No pleural effusion. No pneumothorax. Heart/Mediastinum: Prominent cardiac silhouette. Bones/joints: Multilevel degenerative changes of the spine. IMPRESSION: New increased interstitial markings consistent with atelectasis or developing infiltrate. Dictated and Authenticated by: Sue Leal MD. Ordering:SAVANNAH Lane MD
[2021-09-23 21:54] LABS: Troponin I < 50 ng/L (<or=60)
[2021-09-23 21:58] LABS: COVID-19 PCR Negative (Negative)
[2021-09-23] MEDS: Azithromycin 250 MG TAB 500 MG PO (22:27)
--- NOTE | 2021-09-24 10:22 | NUR.NOTE ---
Patient's called stating that [facility] in [place] is closed today and they are unable to get his prescription. She requested [facility] in [place]. With Dr. Brooke's permission I called in the [facility]. I called the back and notified her that it was called in. Karen Stokes Nursing Note:
== END 2021-09-23 22:31 | disposition home or self-care (01) ==
PROVIDERS: Emergency Medicine; Emergency Provider Emergency Medicine; PCP Family Medicine
DX: J44.9 Chronic obstructive pulmonary disease, unspecified (principal); R06.02 Shortness of breath; R05.1 Acute cough; R60.0 Localized edema; Z20.822 Contact with and (suspected) exposure to COVID-19; R91.8 Other nonspecific abnormal finding of lung field
CPT/HCPCS: 36415; 80053; 87635; 93005; 94640; 99284; 71045; 83735; 83880; 84484; 85025; 93010; J7620

== ENCOUNTER 2022-08-18 09:29 | Emergency (ER) | payer MEDICARE, MEDICAID, SELFPAY ==
[2022-08-18 09:32] VITALS: BP 123/71; PULSE 74; RESP 20; TEMP 37; O2SAT 95
--- NOTE | 2022-08-18 09:45 | DI.RAD_ITS ---
Exam(s) XR PORTABLE CHEST AP EXAM: XR PORTABLE CHEST AP CLINICAL HISTORY: cough, copd, right lower lung wheeze TECHNIQUE: COMPARISON: CR,XR XR PORTABLE CHEST AP from 09/23/2021 FINDINGS: The heart is enlarged. Upper lung zones are clear. Right lung bases clear. Question of [facility] radiodensity at left lung base comparison with prior examination of September 23, 2021. However the diaphragmatic contour on the left remains intact. No gross pleural effusion on this frontal film IMPRESSION: Possible new left lower lobe infiltrate. PA and lateral chest suggested for further evaluation. RADIATION DOSE DELIVERED: Total DLP
--- NOTE | 2022-08-18 09:52 | W.ED.GENAD ---
Discharge Plan Disposition Patient Disposition: Home Condition: Improving Discharge Details Clinical Impression: Cough Primary Care Provider: Crescencio Bhardwaj ED Provider: Luiz Gurrola Home Meds and New Rx's Prescriptions: New albuterol sulfate 1.25 mg/3 mL solution for nebulization 1.25 mg inhalation Q6H PRN (Reason: shortness of breath or wheezing) Qty: 75 0RF No Action Anoro Ellipta 62.5-25 mcg/actuation blister with device 1 inh IH DAILY metoprolol succinate 25 mg capsule,sprinkle,ER 24hr 25 mg PO DAILY potassium chloride 10 mEq capsule, extended release 10 meq PO DAILY spironolactone 25 mg tablet 25 mg PO DAILY albuterol sulfate [Ventolin HFA] 90 mcg/actuation HFA aerosol inhaler 2 puff IH QID Eliquis 5 mg tablet 5 mg PO BID gabapentin 300 mg capsule 600 mg PO QHS tamsulosin 0.4 mg capsule 0.8 mg PO DAILY torsemide 20 mg tablet 40 mg PO DAILY acetaminophen [Tylenol Arthritis Pain] 650 mg tablet extended release 650 mg PO Q12H lidocaine [Salonpas (lidocaine)] 4 % adhesive patch,medicated 1 patch topical BID PRN Discharge Instructions Instructions: Acute Cough (ED) Additional Instructions: Please follow-up with your primary care physician. Please take medications as prescribed. Return to the emergency department for any worsening symptoms. Medical Decision Making 76-year-old male history of COPD presents with dry cough over the past week. Afebrile nontoxic moving good air bilaterally however does have localized expiratory wheeze right base, speaking full sentences no hypoxia. Consider viral respiratory illness versus pneumonia likely result in mild COPD exacerbation. Trial of nebs and dexamethasone will perform screening x-ray to assess for consolidation. Likely home with close follow-up 11: 33 feeling improvement after nebs and steroid. No respiratory distress. Will: Prescription for nebulized albuterol to his pharmacy. Home care instructions and return precautions given Sign Out No HPI General Date/Time Provider Initiated Documentation: 08/18/22 09:30. HPI Narrative: 76-year-old male history of COPD presents with nonproductive cough over the last week, has been using his nebulized albuterol at home intermittently. Related Data Home Medications Medication Instructions Recorded Confirmed albuterol sulfate 90 mcg/actuation 2 puff inhalation QID 04/19/20 08/18/22 aerosol inhaler (Ventolin HFA) metoprolol succinate 25 mg capsule 25 mg PO DAILY 04/19/20 08/18/22 sprinkle, ext. release 24 hr potassium chloride 10 mEq 10 meq PO DAILY 04/19/20 09/23/21 capsule,extended release spironolactone 25 mg tablet 25 mg PO DAILY 04/19/20 08/18/22 umeclidinium 62.5 mcg-vilanterol 1 inh inhalation DAILY 04/19/20 08/18/22 25 mcg/actuation powdr for inhalation (Anoro Ellipta) acetaminophen 650 mg 650 mg PO Q12H 03/30/21 08/18/22 tablet,extended release (Tylenol Arthritis Pain) apixaban 5 mg tablet (Eliquis) 5 mg PO BID 03/30/21 08/18/22 gabapentin 300 mg capsule 600 mg PO QHS 03/30/21 08/18/22 lidocaine 4 % topical patch 1 patch topical BID PRN 03/30/21 08/18/22 (Salonpas (lidocaine)) tamsulosin 0.4 mg capsule 0.8 mg PO DAILY 03/30/21 08/18/22 torsemide 20 mg tablet 40 mg PO DAILY 03/30/21 09/23/21 albuterol sulfate 1.25 mg/3 mL 1.25 mg (3 mL) inhalation Q6H PRN 08/18/22 solution for nebulization shortness of breath or wheezing #75 mL Previous Rx's Medication Instructions Recorded albuterol sulfate 1.25 mg/3 mL 1.25 mg (3 mL) inhalation Q6H PRN 08/18/22 solution for nebulization shortness of breath or wheezing #75 mL Allergies Allergy/AdvReac Type Severity Reaction Status Date / Time No Known Allergies Allergy Verified 08/18/22 09:35 General Stated Complaint: RespSymp OTTO: 4 Review of Systems Narrative: Review of Systems Constitutional: negative Eyes: negative ENT: negative Cardiovascular: negative Respiratory: Cough Gastrointestinal: negative : negative Musculoskeletal: negative Skin: negative Neurologic: negative Psych: negative PFSH All Active Problems (Updated 08/18/22 @ 11:34 by Luiz Gurrola MD) Cough (Acute) Tubulovillous adenoma of colon (Acute) Tubular adenoma of colon (Acute) Chronic kidney disease, stage 3 (Acute ~02/12/20) Edema (Acute) Benign hypertension (Acute ~04/07/18) COPD (chronic obstructive pulmonary disease) (Chronic) Benign prostate hyperplasia (Chronic) Dyspnea (Acute) Obesity (Chronic) Hyperlipidemia (Acute) Positive colorectal cancer screening using Cologuard test (Acute ~04/14/20) referred by Crescencio Bhardwaj MD [place] Atrial fibrillation with controlled ventricular rate (Acute) Diastolic dysfunction with chronic heart failure (Acute) JUAN CARLOS and COPD overlap syndrome (Acute) Rectal bleeding (Acute) Alcohol abuse, in remission (Acute) Adenomatous polyp of sigmoid colon (Acute) Diverticular disease of large intestine (Acute) Internal and external bleeding hemorrhoids (Acute) Villous adenoma of colon (Acute) Medical History Adenomatous colon polyp Atypical chest pain (~10/17/18) Follows up with Dr. Concepcion at [facility] [place] 02/2020 Chronic lower back pain Congestive heart failure F/U with Dr. Concepcion @ [facility] [place], last seen spring Eczema ED (erectile dysfunction) Fatigue Hemorrhoids Lightheadedness JUAN CARLOS (obstructive sleep apnea) Osteoarthritis (arthritis due to wear and tear of joints) Osteoarthritis of knee Paroxysmal atrial fibrillation (~10/31/18) Peripheral neuropathy Poor short term memory Tick bite with subsequent removal of tick Surgical History (Updated 09/12/21 @ 13:10 by Milana Hansen RN) History of colonoscopy (~08/2021) Hx of total knee replacement Social History Smoking/Tobacco Use Status: Former Tobacco Use Quit Date: 09/16/82 Smokeless tobacco user: chewing tobacco Smoking risk assessment performed?: Yes Alcohol Intake: former Drug use: Never Substance use type: does not use Current gender identity: female Do you feel safe at home: Yes Do you feel safe in your relationship?: Yes Exam Narrative Exam Narrative: Physical Examination General: alert, awake, cooperative, resting comfortably, no acute distress HEENT: normocephalic, atraumatic; PERRL, EOM intact, conjunctiva normal; no nasal discharge; moist mucous membranes, oral and pharyngeal mucosa normal, tolerating secretions Neck: supple, trachea midline; full ROM Chest: normal to inspection Respiratory: normal respiratory effort, speaking in full sentences, mild expiratory wheeze right base most predominant Cardiac: regular rate, regular rhythm, S1S2 intact, no murmurs rubs or gallops GI: abdomen soft, non-tender, non-distended; no palpable mass or hepatosplenomegaly Skin: no lesions, rashes or trauma appreciated Neuro: AAOx3, normal speech, moving all extremities Psych: Appropriate mood and affect Course Vital Signs Vital signs: Vital Signs Temperature 37.0 C 08/18/22 09:32 Pulse 74 08/18/22 09:32 Respiratory Rate 20 08/18/22 09:32 Blood Pressure 123/71 08/18/22 09:32 Pulse Oximetry 95 08/18/22 09:32 Temperature 37.0 C 08/18/22 09:32 Temperature Source Temporal Artery Scan 08/18/22 09:32 Pulse 74 08/18/22 09:32 Respiratory Rate 20 08/18/22 09:32 Respiratory Effort 08/18/22 09:39 Respiratory Depth Shallow 08/18/22 09:39 Blood Pressure 123/71 08/18/22 09:32 Blood Pressure Position Sitting 08/18/22 09:32 Pulse Oximetry 95 08/18/22 09:32 Oxygen Delivery Method Room Air 08/18/22 09:32 Oxygen Flow Rate 0 08/18/22 09:32 Pain Level 0 08/18/22 09:32
[2022-08-18] MEDS: Dexamethasone 10 MG/ML VIAL IM (09:57)
[2022-08-18] MEDS: Albuterol/Ipratropium 3 ML UPD VIAL UPD (10:07)
[2022-08-18 10:28] VITALS: BP 125/68; PULSE 89; RESP 16; O2SAT 98
--- NOTE | 2022-08-18 10:57 | DI.VRAD_ITS ---
PROCEDURE INFORMATION: Exam: XR Chest Exam date and time: 08/18/2022 9:44 AM Age: 76 years old Clinical indication: Cough and wheezing and other: Copd, RT lower lung wheeze.No history of trauma or recent surgery is provided. TECHNIQUE: Imaging protocol: Radiologic exam of the chest. 1image(s) are provided. Views: 1 view. COMPARISON: XR PORTABLE CHEST AP 09/23/2021 6:50 PM FINDINGS: Lungs: There is subsegmental atelectasis versus post inflammatory scarring demonstrated. This appears slightly increased at the left lung base. No lobar consolidation is appreciated. Pleural spaces: Unremarkable. No pneumothorax or pleural effusion is appreciated. Heart/Mediastinum: The cardiomediastinal silhouette is upper normal in size.No cardiac decompensation is appreciated. Diaphragm: There is slight asymmetric right hemidiaphragm elevation present. Bones/joints: There is some flowing thoracic spondylosis present similar overall. Soft tissues: No radiopaque foreign body or subcutaneous emphysema is appreciated. Other findings: No other significant interval changes are appreciated. IMPRESSION: There is some bandlike subsegmental atelectasis slightly increased at the left lung base in the interval with no lobar consolidation or cardiac decompensation appreciated. Dictated and Authenticated by: Osiel Raya MD. Ordering:PATRICIA Dee MD
== END 2022-08-18 11:39 | disposition home or self-care (01) ==
PROVIDERS: Emergency Provider Emergency Medicine; PCP Family Medicine
DX: R05.1 Acute cough (principal); J44.9 Chronic obstructive pulmonary disease, unspecified; R06.2 Wheezing
CPT/HCPCS: 94640; 96372; 99284; 71045; 99283; J1100; J7620

== ENCOUNTER 2022-10-15 15:39 | Emergency (ER) | payer MEDICARE, MEDICAID, SELFPAY ==
[2022-10-15 15:53] VITALS: BP 128/63; PULSE 77; RESP 18; TEMP 36.7; O2SAT 98
--- NOTE | 2022-10-15 16:00 | DI.CT_ITS ---
Exam(s) CT CHEST/ABD/PEL W EXAM: CT CHEST/ABD/PEL W CLINICAL HISTORY: R flank/R lower chest/RUQ pain TECHNIQUE: Imaging Protocol: Axial computed tomography images with coronal and sagittal reformatted images were created and reviewed CONTRAST MATERIAL: Intravenous: Omnipaque 350 contrast volume:100 mL Oral: No COMPARISON: CR,XR XR PORTABLE CHEST AP from 08/18/2022 FINDINGS: CHEST: Tracheobronchial tree: Patent where visualized. Pulmonary parenchyma: No consolidation or dominant measurable mass. No architectural distortion. Ther e is scarring or atelectasis in the left lingula. Visualized thyroid gland: Unremarkable. Mediastinum and Dariana: No dominant adenopathy or fluid collection. The esophagus is unremarkable. The re is a small hiatal hernia. Pleura: No effusion or pneumothorax. Heart: The heart is not dilated. No coronary artery calcifications are seen. No pericardial effusion. Pulmonary arteries: The pulmonary arteries are inadequately opacified due to the bolus timing for cruz luation of pulmonary emboli. Aorta: Thoracic aorta non-dilated. Lymph nodes: Within normal limits. Soft tissues: There is bilateral gynecomastia. Bones:Within normal limits for the patient's age. ABDOMEN: Liver: Normal density. There is a well-circumscribed 1.9 cm cyst in the liver. Portal, Superior Mesenteric, and Splenic Veins: Unremarkable. Gallbladder and Biliary Tract: No radiodense calculus or dilation. Pancreas: Normal density, no abnormal calcifications or inflammatory process. Spleen: Normal. Adrenals: No masses seen. Kidneys: Normal size, contour and axis. No radiodense stones or obstructive uropathy. There is a 1.9 cm simple cyst in the left kidney. No follow-up is recommended. Abdominal Aorta: Abdominal portion non-dilated. Minimal atherosclerosis is present. There is mural p laque seen in the SMA. Bowel: There is diverticulosis seen in the colon, but no evidence of acute diverticulitis. There is no evidence of appendicitis. No evidence of bowel obstruction or bowel wall thickening is seen. Peritoneal Cavity: No ascites, collection or mesenteric inflammatory response. No free air. Lymph Nodes: Within normal limits. Bones: Within normal limits for the patient's age. Soft Tissues: Small fat containing inguinal hernia are present. PELVIS: Bladder: Symmetric distention, no gross wall thickening. Reproductive Organs: The prostate gland is enlarged. Lymph Nodes: Within normal limits. Bones: Within normal limits. IMPRESSION: 1. No acute pulmonary process. 2. No acute abdominal or pelvic process. 3. Mural irregularity seen in the SMA which may represent mural plaque. Chronic dissection cannot be entirely excluded. 4. Colonic diverticulosis but no evidence of acute diverticulitis. RADIATION DOSE DELIVERED: 2,131.56mGy.cm Total DLP DATA REPOSITORY: All CT scans at this facility are submitted to the National Radiology Data Registry (NRDR) Dose Index Registry (DIR) with the [employer] ([employer]). RADIATION OPTIMIZATION: All CT scans at this facility use at least one of these dose optimization te chniques: automated exposure control; mA and/or kV adjustment per patient size (includes targeted exa ms where dose is matched to clinical indication); or iterative reconstruction.
--- NOTE | 2022-10-15 16:11 | ED.GENADUL_ITS ---
Discharge Plan Disposition Patient Disposition: Home Condition: Improving Discharge Details Clinical Impression: Back strain, Mesenteric artery stenosis Primary Care Provider: Crescencio Bhardwaj ED Provider: Domingo Brooke Home Meds and New Rx's Prescriptions: New methocarbamol 500 mg tablet 500 mg PO Q6H PRN (Reason: Back pain or spasm) Qty: 20 0RF Continued Anoro Ellipta 62.5-25 mcg/actuation blister with device 1 inh IH DAILY metoprolol succinate 25 mg capsule,sprinkle,ER 24hr 25 mg PO DAILY potassium chloride 10 mEq capsule, extended release 10 meq PO DAILY spironolactone 25 mg tablet 25 mg PO DAILY albuterol sulfate [Ventolin HFA] 90 mcg/actuation HFA aerosol inhaler 2 puff IH QID Eliquis 5 mg tablet 5 mg PO BID gabapentin 300 mg capsule 600 mg PO QHS tamsulosin 0.4 mg capsule 0.8 mg PO DAILY torsemide 20 mg tablet 40 mg PO DAILY acetaminophen [Tylenol Arthritis Pain] 650 mg tablet extended release 325 mg PO Q12H lidocaine [Salonpas (lidocaine)] 4 % adhesive patch,medicated 1 patch topical BID PRN Rx Instructions: does not use. 10/15/22 albuterol sulfate 1.25 mg/3 mL solution for nebulization 1.25 mg inhalation Q6H PRN (Reason: shortness of breath or wheezing) Qty: 75 0RF Discharge Instructions Instructions: Back Pain (ED) Additional Instructions: As we discussed, I will place a referral for consultation in the vascular surgery office at [facility]. I discussed her case with Dr. Jose gill this evening. The vascular surgery office asked that she begin a baby/81 mg aspirin daily. Continue your regular medications. May use the provided methocarbamol as needed for muscular pain or spasm. Please see referral for physical therapy. Return to the ER if you develop a fever, worsening pain, develop a rash on the flank, or any other acute concerns. Stand Alone Forms: Physical Therapy Referral Medical Decision Making This is a pleasant 77-year-old male presents with his . He has had 4 weeks of right-sided flank pain has been fairly constant, worse with lying on that side, and worse with a heating pad. He denies fever, chills, change to urine or bowel. He has not been ill in any other way. Patient's vital signs are normal, he has reproducible pain of the right flank and right upper quadrant. Differential diagnosis is broad. The patient has a history of A. fib, hyperlipidemia, obesity, diverticular disease. He is ant icoagulated. IV access was established, fluids initiated, urinalysis, screening blood work obtained and patient is referred for CT imaging. Laboratory notes normal CBC with a white count 8, hematocrit 47, platelets 245. Chemistries are within normal limits. Lipase is 17. CT scan of the chest shows mild chronic postinflammatory scarring. See the formal report. CT scan of the abdomen pelvis notes simple renal cyst on the left. Focal mural plaque is seen with luminal narrowing at the SMA level with distal contrast present. See the formal report. Some chronic atherosclerotic change as well as chronic dissection related change could present in this fashion. Lactic acid obtained within normal limits. Images were uploaded and consult requested from [facility] vascular surgery, Dr. Fransico Ann. She states there is no indication for urgent work-up. They will see the patient in clinic in follow-up and I will place a consult. She asked that I start the patient on baby aspirin and continue his anticoagulation. He is informed of the process and is stable for discharge to home. His presenting complaint of right flank pain may be due to muscular strain. We will trial methocarbamol and a referral to physical therapy. He is stable and improving. HPI General Mode of arrival: ambulatory . Date/Time Provider Initiated Documentation: 10/15/22 15:43 . Limitations to Documentation: no limitations . Information obtained by: patient . History of Present Illness 77 year old M presents to the emergency department with the chief complaint of Right flank pain for 4 weeks, described as moderate, Quality is described as dull and constant, and is localized to the chest, back and right. Patient reports no radiation. Patient started experiencing this week(s) and it has been constant. Rest improves symptom(s), Other factors that worsen symptoms (Worse with acute and worse with lying on right side) . Patient notes denies chest pain, cough, fever/chills, rash and shortness of breath. Patient did receive the following treatments prior to arrival, none Related Data Home Medications Medication Instructions Recorded Confirmed albuterol sulfate 90 mcg/actuation 2 puff inhalation QID 04/19/20 10/15/22 aerosol inhaler (Ventolin HFA) metoprolol succinate 25 mg capsule 25 mg PO DAILY 04/19/20 10/15/22 sprinkle, ext. release 24 hr potassium chloride 10 mEq 10 meq PO DAILY 04/19/20 10/15/22 capsule,extended release spironolactone 25 mg tablet 25 mg PO DAILY 04/19/20 10/15/22 umeclidinium 62.5 mcg-vilanterol 1 inh inhalation DAILY 04/19/20 10/15/22 25 mcg/actuation powdr for inhalation (Anoro Ellipta) acetaminophen 650 mg 325 mg PO Q12H 03/30/21 08/18/22 tablet,extended release (Tylenol Arthritis Pain) apixaban 5 mg tablet (Eliquis) 5 mg PO BID 03/30/21 10/15/22 gabapentin 300 mg capsule 600 mg PO QHS 03/30/21 10/15/22 lidocaine 4 % topical patch 1 patch topical BID PRN 03/30/21 08/18/22 (Salonpas (lidocaine)) tamsulosin 0.4 mg capsule 0.8 mg PO DAILY 03/30/21 10/15/22 torsemide 20 mg tablet 40 mg PO DAILY 03/30/21 10/15/22 albuterol sulfate 1.25 mg/3 mL 1.25 mg (3 mL) inhalation Q6H PRN 08/18/22 10/15/22 solution for nebulization shortness of breath or wheezing #75 mL methocarbamol 500 mg tablet 500 mg PO Q6H PRN Back pain or 10/15/22 spasm #20 tabs Previous Rx's Medication Instructions Recorded albuterol sulfate 1.25 mg/3 mL 1.25 mg (3 mL) inhalation Q6H PRN 08/18/22 solution for nebulization shortness of breath or wheezing #75 mL methocarbamol 500 mg tablet 500 mg PO Q6H PRN Back pain or 10/15/22 spasm #20 tabs Allergies Allergy/AdvReac Type Severity Reaction Status Date / Time No Known Allergies Allergy Verified 10/15/22 15:54 General Stated Complaint: FlankPain OTTO: 3 Review of Systems Narrative: 8 systems reviewed and otherwise negative. No fever, chills, cough, nausea, vomiting. Has not noted a rash. PFSH All Active Problems (Updated 10/15/22 @ 20:05 by Domingo Brooke MD) Back strain (Acute) Mesenteric artery stenosis (Acute) Tubulovillous adenoma of colon (Acute) Tubular adenoma of colon (Acute) Chronic kidney disease, stage 3 (Acute ~02/12/20) Edema (Acute) Benign hypertension (Acute ~04/07/18) COPD (chronic obstructive pulmonary disease) (Chronic) Benign prostate hyperplasia (Chronic) Dyspnea (Acute) Obesity (Chronic) Hyperlipidemia (Acute) Positive colorectal cancer screening using Cologuard test (Acute ~04/14/20) referred by Crescencio Bhardwaj MD [place] Atrial fibrillation with controlled ventricular rate (Acute) Diastolic dysfunction with chronic heart failure (Acute) JUAN CARLOS and COPD overlap syndrome (Acute) Rectal bleeding (Acute) Alcohol abuse, in remission (Acute) Adenomatous polyp of sigmoid colon (Acute) Diverticular disease of large intestine (Acute) Internal and external bleeding hemorrhoids (Acute) Villous adenoma of colon (Acute) Medical History Adenomatous colon polyp Atypical chest pain (~10/17/18) [place] up with [place] Concepcion [place] [facility] [place] Chronic lower back pain Congestive heart failure F/U with Dr. Concepcion @ [facility] [place] last seen spring 02/2021 Eczema ED (erectile dysfunction) Fatigue Hemorrhoids Lightheadedness JUAN CARLOS (obstructive sleep apnea) Osteoarthritis (arthritis due to wear and tear of joints) Osteoarthritis of knee Paroxysmal atrial fibrillation (~10/31/18) Peripheral neuropathy Poor short term memory Tick bite with subsequent removal of tick Surgical History History of colonoscopy (~08/2021) Hx of total knee replacement Social History Smoking/Tobacco Use Status: Former Tobacco Use Quit Date: 09/16/82 Smokeless tobacco user: chewing tobacco Smoking risk assessment performed?: Yes Alcohol Intake: former Drug use: Never Substance use type: does not use Current gender identity: female Do you feel safe at home: Yes Do you feel safe in your relationship?: Yes Exam Narrative Exam Narrative: GEN: awake, alert, oriented 3. Pleasant, well groomed, interactive. HEAD: Normocephalic, atraumatic ENT: Mucous membranes moist, oropharynx unremarkable, External ear exam unremarkable EYES: PERRL, EOMI NECK: Full ROM, no INDERJIT, no menigismus CHEST/RESP: Tender right posterior/lateral lower chest wall, clear to auscultation bilateral, no wheeze/rhonchi/rales CARDIOVASCULAR: RRR, no murmur, rub uvaldo. 2+ Rad pulse bilateral ABDOMEN: Soft, tender right upper quadrant without rebound or guarding, no mass. +Bowel sounds EXT: Full ROM, no edema, no rash Neuro: Grossly normal neurologic exam, conversant, interactive. Psych: Speech fluent, thoughts congruent, affect normal Course Vital Signs Vital signs: Vital Signs Temperature 36.7 C 10/15/22 15:53 Pulse 77 10/15/22 15:53 Respiratory Rate 18 10/15/22 15:53 Blood Pressure 128/63 10/15/22 15:53 Pulse Oximetry 98 10/15/22 15:53 Temperature 36.7 C 10/15/22 15:53 Temperature Source Temporal Artery Scan 10/15/22 15:53 Pulse 77 10/15/22 15:53 Respiratory Rate 18 10/15/22 15:53 Blood Pressure 128/63 10/15/22 15:53 Pulse Oximetry 98 10/15/22 15:53 Oxygen Delivery Method Room Air 10/15/22 15:53 Oxygen Flow Rate 0 10/15/22 15:53
[2022-10-15 16:13] LABS: Bilirubin Negative (Negative); Blood Negative (Negative); Clarity Clear (Clear); Glucose Negative (Negative); Ketones Negative (Negative); Leukocyte Esterase Negative (Negative); Nitrite Negative (Negative); Urobilinogen 0.2 EU/dL (Up TO 0.2); pH 5.5 (5-8)
[2022-10-15 16:34] LABS: Abs Immature Grans 0.13 10^3/uL (0.0-0.06); Absolute Basophil Count 0.07 10^3/uL (0.0-0.2); Absolute Eosinophil Count 0.13 10^3/uL (0.0-0.7); Absolute Lymphocyte Count 1.19 10^3/uL (1.2-3.4); Absolute Monocyte Count 0.84 10^3/uL (0.1-0.8); Basophils % 0.8; Eosinophils % 1.5; HCT 47.7 % (40.0-50.0); HGB 15.3 g/dL (13.5-17.5); Immature Grans % 1.5; Lymphocytes % 13.9; MCH 30.3 pg (27.0-33.0); MCHC 32.1 % (32.0-36.0); MCV 95 fL (80-95); MPV 10.1 fL (8.0-11.0); Monocytes % 9.8; Neutrophils % 72.5; Platelet Count 245 10^3/uL (130-400); RBC 5.05 10^6/uL (4.36-5.78); RDW 13.2 % (11.8-14.1); RDW-SD 46.3 fL; WBC 8.56 10^3/uL (4.4-10.8)
[2022-10-15] MEDS: Normal Saline 500 ML IV (16:38)
[2022-10-15 16:57] LABS: ALT 23 U/L (16-63); AST 15 U/L (15-37); Albumin 3.7 g/dL (3.4-5.0); Alkaline Phosphatase 121 U/L (46-116); Anion Gap 9.3 mmol/L (3-11); BUN 17 mg/dL (7-18); Bilirubin, Total 0.4 mg/dL (0.2-1.0); CO2 28.7 mmol/L (21.0-32.0); CREATININE 1.3 mg/dL (0.70-1.30); Chloride 102 mmol/L (98-107); Estimated GFR 57.29 (mL/min/1.73m2); Glucose 92 mg/dL (74-106); Lipase 17 U/L (16-77); Sodium 140 mmol/L (136-145); Total Protein 7.4 g/dL (6.4-8.2)
[2022-10-15] MEDS: Normal Saline - Diluent 50 ML VIAL IJ (17:11)
[2022-10-15] MEDS: Omnipaque 350 MG/ML 100 ML BTL IJ (17:12)
--- NOTE | 2022-10-15 18:13 | DI.VRAD_ITS ---
PROCEDURE INFORMATION: Exam: CT Chest With Contrast; Diagnostic Exam date and time: 10/15/2022 5:10 PM Age: 77 years old Clinical indication: Other: R flank, right lower chest, ruq pain.No history of trauma or recent surgery is provided. TECHNIQUE: Imaging protocol: Diagnostic computed tomography of the chest with contrast. 3D rendering (Not supervised by radiologist): MIP and/or 3D reconstructed images were created by the technologist. Radiation optimization: All CT scans at this facility use at least one of these dose optimization techniques: automated exposure control; mA and/or kV adjustment per patient size (includes targeted exams where dose is matched to clinical indication); or iterative reconstruction. Contrast material: OMNIPAQUE; Contrast volume: 100 ml; Contrast route: INTRAVENOUS (IV); Other technique: Axial images are available with sagittal and coronal reconstruction views. Automated dose exposure control is utilized. The DLP is 2132.0. COMPARISON: XR PORTABLE CHEST AP 08/18/2022 9:44 AM FINDINGS: Trachea: The central airways are patent. Lungs: There are some granulomatous changes present including 2 mm subpleural right image 244 series 6 as well as posterior basal right lower lobe image 521 and 3 x 4 mm anteromedial left upper lobe image 185.No lobar consolidation is appreciated. There is some bandlike scarring with bronchiolectasis indicative of previous inflammation at the left lung base more so than right. Pleural spaces: No pneumothorax or pleural effusion is appreciated. Heart: No significant effusion or cardiac decompensation is appreciated. Lymph nodes: No abnormal mediastinal or hilar lymph node enlargement is appreciated. Vasculature: No central pulmonary thromboembolism is appreciated. Subsegmental evaluation is limited. Intraperitoneal space: The intraperitoneal space abdominal findings correlates with the dedicated CT abdomen description same day. Bones/joints: Osseous alignment is maintained.No displaced fracture or dislocation is appreciated. There is some bulky flowing thoracic osteophytosis demonstrated overall. There does appear to be some cortical thickening suggestive of previous injury related sequela at the anterior inferior costochondral sternal junction more so on the right. Consider if there is localized point tenderness. Soft tissues: There is some gynecomastia demonstrated bilaterally. Other findings: There is some motion artifact present. IMPRESSION: 1. There is some mild chronic postinflammatory appearing scarring at the lung bases left more so than right with no lobar consolidation appreciated. 2. Unremarkable thoracic aortic contours are demonstrated. 3. No central pulmonary thromboembolism is appreciated. PROCEDURE INFORMATION: Exam: CT Abdomen And Pelvis With Contrast Exam date and time: 10/15/2022 5:10 PM Age: 77 years old Clinical indication: Other: R flank, right lower chest, ruq pain TECHNIQUE: Imaging protocol: Computed tomography of the abdomen and pelvis with contrast. 3298image(s) are provided. 3D rendering (Not supervised by radiologist): MIP and/or 3D reconstructed images were created by the technologist. Radiation optimization: All CT scans at this facility use at least one of these dose optimization techniques: automated exposure control; mA and/or kV adjustment per patient size (includes targeted exams where dose is matched to clinical indication); or iterative reconstruction. Contrast material: OMNIPAQUE; Contrast volume: 100 ml; Contrast route: INTRAVENOUS (IV); Other technique: Axial images are available with sagittal and coronal reconstruction views. Automated dose exposure control is utilized. The DLP is 2132.0. COMPARISON: MR lower joint RT wo 09/02/2018 2:13 PM FINDINGS: Liver: There is some fluid dense cyst appears of the right liver lobe measuring approximally 1.4 cm in diameter. There is some marginal hepatic steatosis appearance overall. Gallbladder and bile ducts: There is some trace gallbladder sludge present. Pancreas: Unremarkable. Spleen: There is some splenic lobulation or cystic type averaging of the superior splenic margin. Adrenal glands: There is some minimal adrenal hypertrophy. Kidneys and ureters: There is some fluid dense simple appearing left renal cyst measuring approximally 1.7 cm in diameter. No radiopaque obstructive renal calculus or hydronephrosis is appreciated. Stomach and bowel: Some aspects of the colon are undistended. This may also be peristaltic related.There is abundant stool present limiting mucosal detail evaluation. Appendix: Appendix is not identified although no localized fluid collection or acute inflammatory stranding changes are appreciated. Intraperitoneal space: No free abdominal air or free fluid collections are appreciated. There is some subtle perinephric stranding as well as lateral conal fascia stranding. Vasculature: No atherosclerotic aortic changes are appreciated. Aortic branch vessel enhancement is demonstrated. There is some accessory renal arterial averaging of the right. There is however some focal mural plaque with luminal narrowing at the SMA level with distal contrast present indicative of overall patency. Some chronic atherosclerotic change as well as chronic dissection related change could present in this fashion. Lymph nodes: Subcentimeter predominant periaortic mesenteric lymph nodes are appreciated. There is some subtle ground-glass attenuation also present and could be seen with adenitis or inflammatory related sequela. Urinary bladder: The bladder is incompletely fluid filled for evaluation which may exagerate the wall thickness. This can also be seen with post inflammation sequela. Reproductive: Unremarkable as visualized. Bones/joints: No fracture or dislocation is appreciated. Soft tissues: No radiopaque foreign body or subcutaneous emphysema is appreciated. IMPRESSION: 1. There is some mural irregularity suggestive of mural plaque or chronic dissection related sequela at the SMA level with distal contrast demonstrated overall. 2. Unremarkable aortic contours are demonstrated. 3. There is prostatic hypertrophy indenting the adjacent bladder margin along with slight perivesicular stranding. Some associated urinary tract inflammation could also present in this fashion. 4. No radiopaque obstructive urinary calculus or hydronephrosis is appreciated. 5. There is some subcentimeter periaortic and mesenteric lymph node appearance as well as subtle ground-glass attenuation suggestive of previous inflammation adenitis including about the peripancreatic margin. THIS REPORT CONTAINS FINDINGS THAT MAY BE CRITICAL TO PATIENT CARE. The findings were verbally communicated via telephone conference at 6:10 PM EST on 10/15/[address] Brooke. The findings were acknowledged and understood. Dictated and Authenticated by: Osiel Raya MD. Ordering:SAVANNAH Lane MD
[2022-10-15 18:33] LABS: Lactate 1.2 mmol/L (0.6-1.4)
[2022-10-15] MEDS: Methocarbamol 500 MG TAB 1000 MG PO (20:18)
[2022-10-15 20:23] VITALS: BP 129/77; PULSE 67; RESP 16; TEMP 36.4; O2SAT 99
--- NOTE | 2022-10-16 10:23 | PDOC.ERCMACT ---
- If Service Date Differs Date of service: 10/16/22 Time of Service: 10:23 Care Management Activity Note Liang is seen in the ED for mesenteric artery stenosis and back strain. At the request of ED provider, HERMANN coordinates a referral to [facility] [place] Vascular Surgery to assist Liang in obtaining an appointment for further evaluation and treatment. He has Medicare and Medicaid for insurance.
== END 2022-10-15 20:25 | disposition home or self-care (01) ==
PROVIDERS: Emergency Provider Emergency Medicine; PCP Family Medicine
DX: S39.012A Strain of muscle, fascia and tendon of lower back, initial encounter (principal); K55.1 Chronic vascular disorders of intestine; I48.91 Unspecified atrial fibrillation; I50.9 Heart failure, unspecified; N28.1 Cyst of kidney, acquired; Z79.01 Long term (current) use of anticoagulants; X58.XXXA Exposure to other specified factors, initial encounter
CPT/HCPCS: 36415; 74177; 80053; 83690; 96360; 99285; 71260; 81003; 83605; 85025; 99284; J3490

== ENCOUNTER 2023-01-23 00:53 | Outpatient (CLI) | payer MEDICARE, MEDICAID, SELFPAY ==
--- NOTE | 2023-01-23 08:00 | DI.RAD_ITS ---
Exam(s) XR CHEST 2V PA LATERAL EXAM: XR CHEST 2V PA LATERAL CLINICAL HISTORY: cough,BRONCHITIS, J40 TECHNIQUE: 2D digital imaging was performed. COMPARISON: CT CT CHEST/ABD/PEL W from 10/15/2022 FINDINGS: Exam somewhat limited by patient body habitus. HEART: Normal size. Aorta: Not dilated. PULMONARY VASCULATURE: Normal. LUNGS: Clear. PLEURAL SPACE: No pleural effusion or pneumothorax. BONE:Unremarkable for age. IMPRESSION: No acute abnormality. DATA REPOSITORY: RADIATION DOSE DELIVERED:
== END 2023-01-23 01:13 ==
LOC: DI 00:53
PROVIDERS: PCP Family Medicine; Visit Provider Physician Assistant
DX: J40 Bronchitis, not specified as acute or chronic (principal)
CPT/HCPCS: 71046

== ENCOUNTER 2023-06-18 01:47 | Outpatient (CLI) | payer MEDICARE, MEDICAID, SELFPAY ==
[2023-06-18 10:30] LABS: ALT 22 U/L (16-63); AST 13 U/L (15-37); Albumin 3.4 g/dL (3.4-5.0); Alkaline Phosphatase 108 U/L (46-116); Anion Gap 7.1 mmol/L (3-11); BUN 12 mg/dL (7-18); Bilirubin, Total 0.7 mg/dL (0.2-1.0); CO2 28.9 mmol/L (21.0-32.0); CREATININE 1.3 mg/dL (0.70-1.30); Calcium 8.9 mg/dL (8.5-10.1); Chloride 101 mmol/L (98-107); Estimated GFR 57.29 (mL/min/1.73m2); Glucose 105 mg/dL (74-106); Magnesium 2.2 mg/dL (1.8-2.4); NT-proBNP 440 pg/mL (<300); Potassium 3.7 mmol/L (3.5-5.1); Sodium 137 mmol/L (136-145); TSH 1.89 uIU/mL (0.36-3.74); Total Protein 6.9 g/dL (6.4-8.2)
== END 2023-06-18 01:48 | disposition home or self-care (01) ==
PROVIDERS: PCP Family Medicine; Visit Provider Internal Medicine
DX: I50.32 Chronic diastolic (congestive) heart failure (principal); R25.2 Cramp and spasm
CPT/HCPCS: 36415; 80053; 83735; 83880; 84443

== ENCOUNTER → 2023-09-26 09:09 | Outpatient (BNVA) | payer MEDICARE, MEDICAID, SELFPAY | PROVIDERS: PCP Family Medicine; Referring Provider Family Medicine; Visit Provider Physician Assistant Surgical | DX: J44.9 Chronic obstructive pulmonary disease, unspecified (principal); E66.9 Obesity, unspecified; R06.00 Dyspnea, unspecified; I50.32 Chronic diastolic (congestive) heart failure; G47.33 Obstructive sleep apnea (adult) (pediatric) | CPT/HCPCS: 99215 ==

== ENCOUNTER → 2024-03-31 09:00 | Outpatient (BNVA) | payer MEDICARE, MEDICAID, SELFPAY | PROVIDERS: PCP Family Medicine; Referring Provider Family Medicine; Visit Provider Internal Medicine Critical Care Medicine | DX: J44.9 Chronic obstructive pulmonary disease, unspecified (principal); G47.33 Obstructive sleep apnea (adult) (pediatric); I50.32 Chronic diastolic (congestive) heart failure | CPT/HCPCS: 99214 ==

== ENCOUNTER → 2024-09-28 09:22 | Outpatient (BNVA) | payer MEDICARE, MEDICAID, SELFPAY | PROVIDERS: PCP Family Medicine; Referring Provider Family Medicine; Visit Provider Physician Assistant Surgical | DX: J44.9 Chronic obstructive pulmonary disease, unspecified (principal); I50.32 Chronic diastolic (congestive) heart failure; E66.9 Obesity, unspecified; R06.00 Dyspnea, unspecified; G47.33 Obstructive sleep apnea (adult) (pediatric) | CPT/HCPCS: 99214 ==

== ENCOUNTER → 2025-03-30 09:49 | Outpatient (BNVA) | payer MEDICARE, MEDICAID, SELFPAY | PROVIDERS: PCP Family Medicine; Referring Provider Family Medicine; Visit Provider Physician Assistant Surgical | DX: J44.9 Chronic obstructive pulmonary disease, unspecified (principal); E66.9 Obesity, unspecified; R06.00 Dyspnea, unspecified; I50.32 Chronic diastolic (congestive) heart failure; G47.33 Obstructive sleep apnea (adult) (pediatric); Z87.891 Personal history of nicotine dependence | CPT/HCPCS: 99214 ==